=== PATIENT | male | born 1935 | race Caucasian/White ===

== ENCOUNTER 2019-01-09 22:38 | Observation (INO) | payer MEDICARE ==
[2019-01-09 23:14] LABS: #Basophils 0.1 thou/uL (0.0-0.2); #Eosinphils 0.2 thou/uL (0.0-0.7); #Lymphocytes 3.5 thou/uL (1.20-3.40); #Neutrophils 4.7 thou/uL (1.40-6.50); %Basophils 1.3 % (0.0-1.0); %Lymphocytes 37.2 % (21.0-51.0); %Monocytes 10.4 % (0.0-10.0); %Neutrophils 49.1 % (42.0-75.0); Hemoglobin 15.5 g/dL (14.0-18.0); Mean Corpuscular HGB CONC 32.9 g/dL (32.0-36.0); Mean Platelet Volume 6.7 fL (7.4-10.4); Platelet Count 204 thou/uL (130-400); RBC Distribution Width 11.7 % (11.5-14.5); White Blood Cell (WBC) Count 9.5 thou/uL (4.8-10.8)
[2019-01-09 23:41] LABS: ALT (SGPT) 24 U/L (8-55); AST (SGOT) 19 U/L (5-34); Albumin 3.9 g/dL (3.4-4.8); Alkaline Phosphatase 56 U/L (40-150); Anion Gap 12 mmol/L (10-20); BUN (Urea Nitrogen) 12 mg/dL (8.4-25.7); Bilirubin, Total 0.4 mg/dL (0.2-1.2); Calc. Creatinine Clearance 0 mL/min (70-130); Calcium 9.2 mg/dL (7.8-10.44); Carbon Dioxide 26 mmol/L (23-31); Chloride 103 mmol/L (98-107); Estimated GFR-MDRD 59; Glucose 92 mg/dL (83-110); Potassium 4.2 mmol/L (3.5-5.1); Protein, Total 6.9 g/dL (5.8-8.1); Sodium 137 mmol/L (136-145)
--- NOTE | 2019-01-10 00:01 | CT ---
CT OF HEAD NONCONTRAST: 01/09/19 COMPARISON: 08/10/17 INDICATION: Fall. FINDINGS: There is no acute intracranial hemorrhage, mass effect, or midline shift. Ventricular system is leonardo l in size. There is mild chronic ischemic disease. The paranasal sinus mucosa thickening and retentio n cyst formation. IMPRESSION: No acute intracranial hemorrhage or mass effect. POS: THERESAK
[2019-01-10] MEDS ORDERED: Meclizine HCl 25 MG TAB ONE (01:12)
[2019-01-10] MEDS ORDERED: Aspirin 325 MG TAB ONE (01:12)
[2019-01-10 02:32] LABS: Acetaminophen Less than 6.0 mcg/mL (10.0-30.0); Alcohol Less than 10 mg/dL (Less than 10); Salicylate Less than 8.0 mg/dL (15.0-30.0)
[2019-01-10 02:37] LABS: Troponin I Less than 0.010 ng/mL (< 0.028)
[2019-01-10] MEDS ORDERED: Ondansetron ODT 4 MG TAB SL PRN (03:03)
[2019-01-10] MEDS ORDERED: Ondansetron PF 4 MG/2 ML Vial IVP PRN (03:03)
[2019-01-10] MEDS ORDERED: Acetaminophen 325 MG TAB PO PRN (03:03)
[2019-01-10] MEDS ORDERED: Meclizine HCl 25 MG TAB PO PRN (03:04)
[2019-01-10 03:30] VITALS: BMI 31.1
[2019-01-10 07:21] LABS: Troponin I Less than 0.010 ng/mL (< 0.028)
--- NOTE | 2019-01-10 08:48 | CT ---
PRELIMINARY REPORT/[facility]/EMERGENCY AFTER HOURS PROCEDURE: EXAM: CT Angiography Head Without And With Contrast EXAM DATE/TIME: 01/10/2019 2:11 AM CLINICAL HISTORY: 83 years old, male; Signs and symptoms; Weakness; Patient HX: Er15; PT reports having double vision t onight. Reports having episode getting weak when going to the restroom around 2100. Reports falling a nd hitting r. Shoulder. PT reports gargled speech. Reports frontal headache. PT and reports similar episode happened last night and eventually went away TECHNIQUE: Imaging protocol: Axial computed tomographic angiography images of the head without and with intraven ous contrast using CT angiography protocol. Coronal and sagittal reformatted images were created and reviewed. 3D rendering: MIP reconstructed images were created and reviewed. COMPARISON: CT Brain WO Con 01/09/2019 11:54 PM FINDINGS: Right internal carotid artery: Unremarkable. Intracranial segment is patent with no significant steno sis. No aneurysm. Right anterior cerebral artery: Unremarkable. No occlusion or significant stenosis. No aneurysm. Right middle cerebral artery: Unremarkable. No occlusion or significant stenosis. No aneurysm. Right posterior cerebral artery: Unremarkable. No occlusion or significant stenosis. No aneurysm. Right vertebral artery: RIGHT vertebral artery is diminutive but patent. Left internal carotid artery: Unremarkable. Intracranial segment is patent with no significant stenos is. No aneurysm. Left anterior cerebral artery: Unremarkable. No occlusion or significant stenosis. No aneurysm. Left middle cerebral artery: Unremarkable. No occlusion or significant stenosis. No aneurysm. Left posterior cerebral artery: Unremarkable. No occlusion or significant stenosis. No aneurysm. Left vertebral artery: Intracranial LEFT vertebral artery is dominant and patent tiny focal calcifica tion consistent with atherosclerosis. Basilar artery: Unremarkable. No occlusion or significant stenosis. No aneurysm. HEAD: Brain: Unremarkable. No hemorrhage. No significant white matter disease. No edema. Ventricles: Normal. No ventriculomegaly. Bones/joints: Unremarkable. No acute fracture. Sinuses: Visualized sinuses are normal. No fluid levels. Mastoid air cells: Visualized mastoids are normal. No mastoid effusion. Soft tissues: Unremarkable. IMPRESSION: 1. No acute intracranial hemorrhage. 2. No large discrete artery aneurysm, dissection or occlusion. EXAM: CT Angiography Neck With Contrast EXAM DATE/TIME: 01/10/2019 2:11 AM CLINICAL HISTORY: 83 years old, male; Signs and symptoms; Weakness; Patient HX: Er15; PT reports having double vision t onight. Reports having episode getting weak when going to the restroom around 2100. Reports falling and hitting r. Shoulder. PT reports gargled speech. Reports frontal headache. PT and reports similar episode happened last night and eventually went away TECHNIQUE: Imaging protocol: Axial computed tomographic angiography images of the neck with intravenous contrast using CT angiography protocol. Coronal and sagittal reformatted images were created and reviewed. 3D rendering: MIP reconstructed images were created and reviewed. COMPARISON: CT Brain WO Con 01/09/2019 11:54 PM FINDINGS: VASCULATURE: Right common carotid artery: Normal. No significant stenosis. No dissection or occlusion. Right internal carotid artery: There is mild atherosclerotic calcification at the origin of the RIGHT internal carotid artery resulting in mild stenosis. Right external carotid artery: Normal. No occlusion or significant stenosis. Right vertebral artery: RIGHT vertebral artery is somewhat diminutive but patent. Left common carotid artery: Normal. No significant stenosis. No dissection or occlusion. Left internal carotid artery: There is mild atherosclerotic calcification at the origin of the LEFT internal carotid artery resulting in mild stenosis. Left external carotid artery: Normal. No occlusion or significant stenosis. Left vertebral artery: LEFT vertebral artery is dominant and patent. NECK: Bones/joints: The cervical spine demonstrates mild degenerative changes at multiple levels. Soft tissues: Normal. No significant soft tissue swelling. Lungs: There is interstitial thickening suggestive of mild pulmonary edema pattern IMPRESSION: Mild atherosclerotic calcification and stenosis at the origins of the RIGHT and LEFT internal carotid arteries. COMMENT: Reference per NASCET criteria for degree of stenosis: Mild: less than 50% stenosis. Moderate: 50-69% stenosis. Severe: 70-94% stenosis. Near occlusion: 95-99% stenosis. Thank you for allowing us to participate in the care of your patient. Dictated and Authenticated by: Phong Castellon MD 01/10/2019 3:01 AM Central Time ([place] & [place]) FINAL REPORT CT ANGIOGRAM HEAD AND NECK: Date: 01/10/19 HISTORY: Weakness. Evaluate for CVA. COMPARISON: None. TECHNIQUE: CT angiogram of the head and neck performed in the axial plane. Three-dimensional reformatted images are submitted for interpretation. FINDINGS: This report is in agreement with the preliminary report by [facility]. There is no significant stenosis bas ed upon NASCET criteria of the cervical carotid or vertebral arteries. There is appropriate enhanceme nt of the [place]. IMPRESSION: No evidence of significant stenosis based upon NASCET criteria. There is no evidence of vascular occl usion at the level of the [place]. POS: OFF
[2019-01-10] MEDS ORDERED: Aspirin 325 MG TAB PO SCH (09:00)
--- NOTE | 2019-01-10 10:20 | HP ---
HISTORY OF PRESENT ILLNESS: This is an 83-year-old white male with a history of bipolar disorder followed by Dr. Call and depression. The patient is on multiple medications including triazolam and Lamictal. The patient has been doing relatively well. Sunday night, he went to a very disturbing movie. It was quite graphic and the patient has had difficulty sleeping for the past 2 nights. He was taking triazolam. On the following morning, Sunday morning and morning, he fell getting out of bed. However, he has been ambulating without difficulty. He has no complaints of headache. No nausea. No vomiting. No fever. He simply complains of tingling of his head. No complaints of any weakness. No complaints of any ataxia. He states that the mood was very disturbing as well as having his others normal stressors of . PAST MEDICAL HISTORY: Bipolar disorder, depression, history of prostate cancer, hypertension, hyperlipidemia, and arthritis. PAST SURGICAL HISTORY: Include colectomy, tonsillectomy, and cardiac catheterization. FAMILY HISTORY: Parents . No family history of heart disease, diabetes, hypertension, or cancers. SOCIAL HISTORY: He is . He has 4 kids. He tries to stay active. MEDICATIONS: 1. Cimzia subcu q.4 weeks. 2. Lamictal 20 mg three tabs daily. 3. Triazolam 0.25 at bedtime. 4. Mirtazapine 30 at bedtime. 5. Lotrisone p.r.n. 6. Mercaptopurine 50 two tabs daily. 7. Flomax 0.4 daily. 8. Metoprolol 100 b.i.d. 9. Losartan 100 mg p.o. q.a.m. 10. Crestor 5 mg daily. 11. Fish oil daily. REVIEW OF SYSTEMS: As above. PHYSICAL EXAMINATION: VITAL SIGNS: Temperature 97.8, pulse 70, respirations 16, pulse ox 95, and blood pressure 137/77. GENERAL: The patient in no acute distress. HEENT: Clear. NECK: Supple. HEART: Regular rate and rhythm. LUNGS: Clear. ABDOMEN: Soft. EXTREMITIES: With no edema. NEURO: Cranial nerves II through XII intact. Normal ambulation. Normal motor sensory bilaterally. LABORATORY DATA: White count 9.5, H and H 15 and 47. Electrolytes normal. Creatinine 1.18. Troponin less than 0.010 x3. Drug screen negative. ASSESSMENT: 1. Transient ischemic attack pain, rule out cerebrovascular accident. Unsure if the patient even had a transient ischemic attack. The patient on mirtazapine, Lamictal, and triazolam under stress especially after seeing a disturbing movie. May be aggravating factors to the fall. At this time, he is relatively asymptomatic. 2. History of prostate cancer. 3. Bipolar disorder. 4. Depression. 5. Hypertension. 6. Hyperlipidemia. PLAN: 1. MRI, rule out brain pathology. 2. Continue regular activity. 3. Begin aspirin 325 daily. 4. Possible discharge this afternoon. Job ID: [id number]
--- NOTE | 2019-01-10 11:45 | MRI ---
FBrain MRI with and without contrast: 01/10/2019 COMPARISON: None HISTORY: Dizziness, fall TECHNIQUE: Multiplanar multisequence MR imaging of the brain obtained at within without contrast FINDINGS: The diffusion weighted imaging demonstrates no evidence for acute infarction. The axial gradient echo imaging demonstrates no evidence for intracranial hemorrhage. Arterial flow v oids at the axial level of the skull base appear grossly unremarkable on the T2-weighted imaging. The right vertebral artery is hypoplastic. The regional bone marrow signal intensity appears within normal limits. There are multiple small scattered foci of increased T2 and FLAIR signal within the periventricular a nd deep white matter, evidence of small vessel disease. Postcontrast imaging demonstrates no abnormal enhancement within the brain parenchyma. IMPRESSION: No acute findings. Evidence of small vessel disease.
[2019-01-10 12:07] VITALS: BP 150/71; TEMP 97.2
[2019-01-10] MEDS ORDERED: ISOVUE-370 76%-LOCM 1 ML ONE (15:04)
--- NOTE | 2019-01-10 16:04 | ULT ---
FMeasuring Echogenic focus Exam: Bilateral renal ultrasound HISTORY: Microhematuria COMPARISON: None FINDINGS: Right kidney: Renal cortical thinning. No hydronephrosis. Echogenic focus measuring 0.8 x 1.3 cm has associated decreased renal cortex, suggesting area of scar with associated fat. Hypoechoic focus andrei uring 1.3 cm is too small to characterize. Right kidney measurements: 8.9 x 5.7 x 5.5 cm Left kidney: Renal cortical thinning. No hydronephrosis. Left kidney measurements 6.0 x 6.3 x 11.8 cm. Urinary bladder: Normal mucosa. IMPRESSION: 1. No hydronephrosis 2. Bilateral renal cortical thinning. 3. Hypoechoic focus in the right kidney, too small to further characterize.
== END 2019-01-10 15:44 | disposition home or self-care (01) ==
LOC: ERS 22:38 → INTOOBSV 01-10 02:53 → 2SE 01-10 02:53
PROVIDERS: ADMIT Family Medicine; ATTEND Family Medicine
DX: R20.2 Paresthesia of skin (principal); I10 Essential (primary) hypertension; I65.23 Occlusion and stenosis of bilateral carotid arteries; F31.9 Bipolar disorder, unspecified; E78.5 Hyperlipidemia, unspecified; M19.90 Unspecified osteoarthritis, unspecified site; Z85.46 Personal history of malignant neoplasm of prostate; Z90.49 Acquired absence of other specified parts of digestive tract; Z90.89 Acquired absence of other organs; Z98.890 Other specified postprocedural states; Z79.899 Other long term (current) drug therapy; W06.XXXA Fall from bed, initial encounter
CPT/HCPCS: 36415; 70450; 70496; 70498; 70553; 76770; 80053; 80307; 84484; 85025; 93005; J2405; Q9966

== ENCOUNTER 2019-11-20 01:52 | Observation (INO) | payer MEDICARE ==
[2019-11-20] MEDS ORDERED: Meclizine HCl 25 MG TAB ONE ×2 (02:19→02:20)
[2019-11-20 02:46] LABS: #Eosinphils 0.2 thou/uL (0.0-0.7); #Lymphocytes 2.7 thou/uL (1.20-3.40); #Monocytes 0.8 thou/uL (0.11-0.59); #Neutrophils 5.3 thou/uL (1.40-6.50); %Basophils 0.4 % (0.0-1.0); %Eosinophils 2.3 % (0.0-10.0); %Lymphocytes 29.5 % (21.0-51.0); %Monocytes 9.1 % (0.0-10.0); %Neutrophils 58.7 % (42.0-75.0); Hemoglobin 14.5 g/dL (14.0-18.0); Mean Corpuscular HGB CONC 33.7 g/dL (32.0-36.0); Mean Corpuscular Hemoglobin 34.1 pg (27.0-31.0); Mean Platelet Volume 6.9 fL (7.4-10.4); Platelet Count 184 thou/uL (130-400); RBC Distribution Width 11.4 % (11.5-14.5); Red Blood Cell (RBC) Count 4.26 mill/uL (4.70-6.10)
[2019-11-20 02:50] LABS: Bilirubin Negative (Negative); Blood, Urine Negative (Negative); Clarity Clear (Clear); Glucose, Urine (Dipstick) Normal (Negative); Leukocyte Negative Leu/uL (Negative); Nitrite Negative (Negative); Protein, Urine (Dipstick) Negative (Neg-Trace); Urobilinogen Normal mg/dL (Less than 2)
[2019-11-20 03:17] LABS: ALT (SGPT) 13 U/L (8-55); AST (SGOT) 18 U/L (5-34); Albumin 3.6 g/dL (3.4-4.8); Alkaline Phosphatase 53 U/L (40-110); Anion Gap 13 mmol/L (10-20); BUN (Urea Nitrogen) 12 mg/dL (8.4-25.7); Bilirubin, Total 0.4 mg/dL (0.2-1.2); Calc. Creatinine Clearance 0 mL/min (70-130); Calcium 8.4 mg/dL (7.8-10.44); Carbon Dioxide 24 mmol/L (23-31); Chloride 107 mmol/L (98-107); Estimated GFR-MDRD 63; Globulin 2.8 g/dL (2.4-3.5); Glucose 110 mg/dL (83-110); Potassium 4.7 mmol/L (3.5-5.1); Protein, Total 6.4 g/dL (5.8-8.1); Sodium 139 mmol/L (136-145)
[2019-11-20] MEDS ORDERED: Aspirin 325 MG TAB ONE (03:46)
[2019-11-20 06:01] VITALS: BMI 31.2
--- NOTE | 2019-11-20 06:23 | CT ---
PRELIMINARY REPORT/[facility]/EMERGENCY AFTER HOURS PROCEDURE: CT brain without contrast: Comparison: None Findings: No intracranial hemorrhage. No hydrocephalus. No mass lesion, midline shift or inferior herniation. Nonspecific bilateral patchy hypodensity in the white matter is most likely chronic small vessel isch emic change in a patient this age. No evidence of acute infarct. Cerebral and cerebellar atrophy. No fracture. Impression: No acute intracranial abnormality. No fracture. ELECTRONICALLY SIGNED BY: Quinton Patton MD Nov 20, 2019 2:56:05 AM RESIDENTIAL TREATMENT SPECIALIST This report is intended for review by the ordering physician only, in accordance of law. If you recei ve this report in error, please call [facility] at [phone]. FINAL REPORT EMERGENCY AFTER HOURS CT BRAIN WITHOUT CONTRAST: FINDINGS/IMPRESSION: I agree with the findings and impression given in the preliminary report per [facility] physici an. No evidence of acute intracranial abnormality.
[2019-11-20] MEDS ORDERED: TRIAZOLAM 0.25 MG PO PRN ×2 (07:49→08:04)
[2019-11-20] MEDS ORDERED: Meclizine HCl 12.5 MG TAB PO PRN (07:51)
--- NOTE | 2019-11-20 08:11 | RAD ---
SINGLE VIEW OF THE CHEST: COMPARISON: 01/29/2015. HISTORY: Weakness and dizziness. FINDINGS: A single view of the chest shows a normal-size cardiomediastinal silhouette. There is no evidence of consolidation, mass, or pleural effusion. The previously seen opacity in the right lower lobe has r esolved. Degenerative changes are seen in the spine. IMPRESSION: No evidence of acute cardiopulmonary disease. POS: TPC
[2019-11-20] MEDS ORDERED: Diazepam 10 MG/2 ML SYRINGE IVP SCH (08:30)
[2019-11-20] MEDS ORDERED: Tamsulosin HCl 0.4 MG CAP PO SCH (09:00)
[2019-11-20] MEDS ORDERED: Rosuvastatin 5 MG TAB PO SCH ×2 (09:00)
[2019-11-20] MEDS ORDERED: Aspirin 81 mg Enteric Coated Tablet PO SCH (09:00)
--- NOTE | 2019-11-20 10:27 | MRI ---
Exam: Brain MRI without contrast HISTORY: Diplopia. Evaluate for stroke. COMPARISON: None FINDINGS: Calvarial marrow signal intensity: Appropriate T1 signal Gradient echo sequence: No hemorrhage Brain parenchyma: No mass, mass effect or midline shift. Brain volume, age-appropriate. Cortical huizar-white matter differentiation: Preserved Restricted diffusion: Central arterial flow voids are maintained. Absent restricted diffusion White matter signal intensities: T2, FLAIR white matter hyperintensities due to chronic small vessel ischemic changes Sinuses: Adequate aeration of the paranasal sinuses and mastoid air cells. Orbits: Based on images provided, bilateral ocular lens implants are appropriately located. No obviou s abnormal signal intensity in the retrobulbar region. Based on images provided, optic chiasm and prechiasmatic optic nerves are unremarkable. IMPRESSION: 1. Absent restricted diffusion. No acute infarct. 2. Based on the sagittal images, optic chiasm prechiasmatic optic nerves are unremarkable. 3. Based on images provided, grossly unremarkable orbits.
[2019-11-20 12:31] VITALS: TEMP 97.6
[2019-11-20 16:30] VITALS: BP 113/57
[2019-11-20] MEDS ORDERED: lamoTRIgine 100 MG TAB PO SCH (21:00)
[2019-11-20] MEDS ORDERED: LAMOTRIGINE PO SCH (21:00)
--- NOTE | 2019-11-21 03:25 | SS ---
DATE OF ADMISSION: 11/20/2019 DATE OF DISCHARGE: 11/20/2019 PRIMARY CARE PHYSICIAN: Phong Jewell MD CHIEF COMPLAINT: Dizziness and later double vision. HISTORY OF PRESENT ILLNESS: This is an 84-year-old white male with a history of recurrent dizzy spells frequently over the last 2 years, perhaps longer. These are usually self-limited. He has been evaluated before including a workup for possible TIA. It was negative last year and thought to be psychogenic due to stress and bipolar disorder. He reports that he was getting up to urinate early in the morning and he was staggering and reaching out for the limon and eventually sat back down in the chair, because he felt like he was just too weak to do it, felt very dizzy and lightheaded. He knocked his head against the wall little bit because he was off balance. He reports that he had a spongy feeling and then he started feeling electric shock sensations in his forehead. They would last for couple of seconds each. He was evaluated in the emergency room. In the ER, he had a negative CT of the head. He was given aspirin, 500 mL of normal saline, and meclizine. After that, his dizziness and unsteadiness resolved, but then he had reported double vision. As a result, he was put in observation in the hospital to rule out stroke or TIAs. The patient had an MRI done prior to my evaluation. By the time I saw him, he was a little bit groggy from the Valium that he had received for the MRI due to feelings of claustrophobia but otherwise, his double vision had resolved. REVIEW OF SYSTEMS: CONSTITUTIONAL: No fevers. No chills. EYES: See HPI. ENT: No congestion or drainage or sore throat. He does report that his left ear pops a lot. CARDIOVASCULAR: No chest pain. No palpitations or racing heart. PULMONARY: No coughing, wheezing or shortness of breath. GASTROINTESTINAL: No abdominal pain. No nausea or vomiting. No diarrhea or constipation. GENITOURINARY: No dysuria or hematuria. MUSCULOSKELETAL: No muscle aches or joint pain. SKIN: No rashes or lesions noted. NEUROLOGIC: See HPI. No focal numbness, tingling, or weakness. Just a feeling of being overall unsteadiness earlier. PSYCHIATRIC: The patient does report feeling quite upset at his and depressed after they got into an argument on Sunday, but he felt like he was getting a little bit better yesterday and then this happened. PAST MEDICAL HISTORY: 1. Hypertension. 2. Hyperlipidemia. 3. Arthritis. 4. History of prostate cancer. PAST PSYCHIATRIC HISTORY: 1. Bipolar disorder. 2. Depression. SOCIAL HISTORY: No tobacco, alcohol, or illicit drug use. He is . His is present in the room. ALLERGIES: NO KNOWN DRUG ALLERGIES. CURRENT MEDICATIONS: 1. Metoprolol succinate 100 mg two times a day. 2. Lamotrigine 200 mg three tablets at bedtime. 3. Tamsulosin 0.4 mg daily. 4. Mercaptopurine 50 mg daily. 5. Losartan 100 mg daily. 6. Triazolam 0.25 mg 1 to 1.5 tablets as needed at night. 7. Rosuvastatin 5 mg daily. FAMILY HISTORY: Parents are . No family history of heart disease, diabetes, hypertension, or cancers. PHYSICAL EXAMINATION: VITAL SIGNS: Blood pressure 113/57, pulse 75, respirations 13, O2 saturation 98% on room air, and temperature 97.6. GENERAL: This is a well-developed obese white male, in no acute distress. HEENT: Pupils are equal, round, and reactive to light. Oropharynx clear without lesions, erythema, or exudate. NECK: Supple. No lymphadenopathy. No thyroid nodules or enlargement. No JVD. HEART: Regular rate and rhythm. No murmurs, rubs, or gallops. LUNGS: Clear to auscultation bilaterally. No wheezes, crackles, or rhonchi. ABDOMEN: Soft, nontender to palpation. Normoactive bowel sounds. No hepatosplenomegaly or other masses. EXTREMITIES: No clubbing, cyanosis, or edema. SKIN: No rashes or lesions noted. NEUROLOGIC: Cranial nerves 2 through 12 intact and equal bilaterally. Strength 5/5 in all 4 extremities. Deep tendon reflexes are 2+ in all extremities. Sensation intact in all extremities. PSYCHIATRIC: Alert and oriented x3. Slightly odd affect. LABORATORY DATA: CBC grossly within normal limits. Complete metabolic panel within normal limits. Brain natriuretic peptide is 104. Troponin is negative. Urinalysis was negative. CT scan done in the emergency room showed no acute intracranial process. MRI done in the emergency room shows no acute infarct. No abnormalities in the optic chiasm, optic nerves or orbits, or any other abnormalities noted to explain double vision he had earlier. ASSESSMENT: Recurrent dizziness followed by some double vision. The patient now has a normal neurologic exam. There is no evidence of stroke. He denies any headaches as far as migraines, cause of the symptoms, but he does have some recurrent dizziness and vertigo spells over the last couple years. This could be an atypical migraine without headache versus peripheral vertigo disease versus psychogenic from stress and family conflict. At this point, there is no evidence for stroke or acute process and so, he is cleared to go home. I am going to recommend that he follow up with Ear, Nose, Throat doctor and with neurologist to continue working up at these recurrent dizzy spells. I will release him later in the day today after the Valium has wore off completely and he is safe to ambulate at home. Job ID: [id number]
--- NOTE | 2019-11-22 12:12 | EKG ---
Test Reason : Blood Pressure : / mmHG Vent. Rate : 054 BPM Atrial Rate : 054 BPM P-R Int : 348 ms QRS Dur : 088 ms QT Int : 430 ms P-R-T Axes : 065 -10 029 degrees QTc Int : 407 ms Sinus bradycardia with 1st degree A-V block Otherwise normal ECG Confirmed by LIDA GALVAN ([id number]), book editor JAKOB SMITH ([id number]) on 11/22/2019 12:12:12 PM Referred By: Confirmed By:LIDA GALVAN
== END 2019-11-20 18:00 | disposition home or self-care (01) ==
LOC: ERS 01:52 → 2SE 04:10
PROVIDERS: ADMIT Internal Medicine; ATTEND Emergency Medicine
DX: R42 Dizziness and giddiness (principal); H53.2 Diplopia; I10 Essential (primary) hypertension; E78.5 Hyperlipidemia, unspecified; F31.9 Bipolar disorder, unspecified; M19.90 Unspecified osteoarthritis, unspecified site; Z79.899 Other long term (current) drug therapy; Z85.46 Personal history of malignant neoplasm of prostate; E78.00 Pure hypercholesterolemia, unspecified
CPT/HCPCS: 70450; 70551; 71045; 80053; 81003; 83880; 84484; 85025; 93005; 96361; 96374; 99285; G0378; 96360; J3360; J8597

== ENCOUNTER 2019-11-24 14:40 | Outpatient (CLI) | payer MEDICARE ==
--- NOTE | 2019-11-24 15:57 | MRI ---
MRI lumbar spine noncontrast HISTORY: Low back pain with right leg radiculopathy worsening for 4 months. COMPARISON: 06/08/2016. FINDINGS: Vertebral body heights are maintained. There is disc space narrowing at each level with gamaliel iccation of the intervertebral discs. Discogenic endplate changes throughout the bone marrow have progressed since the previous exam. T12-L1: Prominent osteophytosis of the facets. Posterior ligamentous thickening greater on the left. Central canal and right neural foramen are patent. There is mild to moderate stenosis of the left neural foramen. L1-2: Disc space narrowing. Minimal disc bulge. Central canal is patent. Degenerative changes of the facets. Moderate to severe stenosis of the left neural foramen. L2-3: Prominent posterior disc bulge and circumferential degenerative changes. Moderate to severe dawn nosis of the central canal. Severe bilateral foraminal stenoses, left greater than right. L3-4: Posterior disc bulge and circumferential degenerative changes. Moderate to severe stenosis of t he central canal. Severe right and moderate to severe left foraminal stenoses. L4-5: Diffuse posterior disc bulge and circumferential degenerative changes. Severe stenosis of the c entral canal and each neural foramen. L5-S1: Minimal degenerative retrolisthesis. Mild posterior disc bulge. Thecal sac is patent. Degenera tive changes of the facets. Moderate to severe stenosis of each neural foramen. IMPRESSION: Prominent multilevel degenerative changes throughout the lumbar spine, as detailed above, have progressed since the prior study from 2015. There is severe central canal stenosis at the L4-5 level and multilevel severe bilateral foraminal stenoses, as detailed above.
== END 2019-11-24 14:41 | disposition home or self-care (01) ==
LOC: BICMRI 14:40
PROVIDERS: ATTEND Family Medicine
DX: M47.26 Other spondylosis with radiculopathy, lumbar region (principal); M48.061 Spinal stenosis, lumbar region without neurogenic claudication; M47.817 Spondylosis without myelopathy or radiculopathy, lumbosacral region; M48.07 Spinal stenosis, lumbosacral region
CPT/HCPCS: 72148

== ENCOUNTER 2020-12-10 11:00 | Outpatient (CLI) | payer MEDICARE | END 2020-12-10 11:01 | disposition home or self-care (01) | LOC: BICRAD 11:00 | PROVIDERS: ATTEND Nurse Practitioner Family | DX: M54.6 Pain in thoracic spine (principal); M47.814 Spondylosis without myelopathy or radiculopathy, thoracic region | CPT/HCPCS: 72072 ==

== ENCOUNTER 2021-08-07 13:16 | Emergency (ER) | payer MEDICARE | END 2021-08-07 14:04 | disposition home or self-care (01) | LOC: ERS 13:16 | DX: T18.9XXA Foreign body of alimentary tract, part unspecified, initial encounter (principal); E78.5 Hyperlipidemia, unspecified; E78.00 Pure hypercholesterolemia, unspecified; I10 Essential (primary) hypertension; K58.9 Irritable bowel syndrome, unspecified | CPT/HCPCS: 99283 ==

== ENCOUNTER 2022-11-03 09:16 | Inpatient (IN) | payer MEDICARE ==
[2022-11-03] MEDS ORDERED: Meclizine HCl 25 MG TAB ONE (10:10)
[2022-11-03 10:44] LABS: #Basophils 0.1 thou/uL (0.0-0.2); #Eosinphils 0.2 thou/uL (0.0-0.7); #Lymphocytes 2.6 thou/uL (1.20-3.40); #Monocytes 0.9 thou/uL (0.11-0.59); #Neutrophils 4.6 thou/uL (1.40-6.50); %Basophils 0.7 % (0.0-1.0); %Eosinophils 2.6 % (0.0-10.0); %Lymphocytes 31.2 % (21.0-51.0); %Monocytes 11.2 % (0.0-10.0); %Neutrophils 54.3 % (42.0-75.0); Hemoglobin 12.5 g/dL (14.0-18.0); Mean Corpuscular Hemoglobin 33.2 pg (27.0-31.0); Mean Platelet Volume 7.8 fL (7.4-10.4); Platelet Count 170 10x3/uL (130-400); RBC Distribution Width 12.2 % (11.5-14.5); Red Blood Cell (RBC) Count 3.77 mill/uL (4.70-6.10); White Blood Cell (WBC) Count 8.4 10x3/uL (4.8-10.8)
[2022-11-03 11:04] LABS: ALT (SGPT) 17 U/L (8-55); AST (SGOT) 20 U/L (5-34); Albumin 3.2 g/dL (3.4-4.8); Alkaline Phosphatase 56 U/L (40-110); Anion Gap 16 mmol/L (10-20); BUN (Urea Nitrogen) 14 mg/dL (8.4-25.7); Bilirubin, Total 0.4 mg/dL (0.2-1.2); Calc. Creatinine Clearance 0 mL/min (70-130); Calcium 8.5 mg/dL (7.8-10.44); Carbon Dioxide 18 mmol/L (23-31); Chloride 106 mmol/L (98-107); Estimated GFR 62; Globulin 3.4 g/dL (2.4-3.5); Glucose 121 mg/dL (83-110); Potassium 4.7 mmol/L (3.5-5.1); Protein, Total 6.6 g/dL (5.8-8.1); Sodium 135 mmol/L (136-145)
[2022-11-03 12:09] LABS: Bilirubin Negative (Negative); Blood, Urine Negative (Negative); Clarity Clear (Clear); Glucose, Urine (Dipstick) Normal (Negative); Ketone, Urine Negative (Negative); Leukocyte Negative Leu/uL (Negative); Nitrite Negative (Negative); Protein, Urine (Dipstick) Negative (Neg-Trace); Specific Gravity, Urine 1.015 (1.002-1.036); Urobilinogen Normal mg/dL (Less than 2); pH, Urine 5.5 (5.0-9.0)
[2022-11-03] MEDS ORDERED: Senokot S 8.6-50 MG TAB PO PRN (13:36)
[2022-11-03] MEDS ORDERED: Meclizine HCl 12.5 MG TAB PO PRN (13:36)
[2022-11-03] MEDS ORDERED: Guaifenesin DM 100-10/5 ML UDCUP PO PRN (13:36)
[2022-11-03] MEDS ORDERED: Bisacodyl 10 MG SUPP PR PRN (13:36)
[2022-11-03] MEDS ORDERED: Aspirin 81 mg Enteric Coated Tablet PO SCH (14:00)
[2022-11-03] MEDS ORDERED: Aspirin Chewable 81 MG TAB ONE (15:26)
[2022-11-03] MEDS: Sodium Chloride 0.9% 1,000 ML IV SCH (15:34)
[2022-11-03 16:17] VITALS: BMI 32.3
[2022-11-03] MEDS: lamoTRIgine 100 MG TAB PO SCH (20:39)
[2022-11-03] MEDS: Rosuvastatin 20 MG TAB PO SCH (20:39)
[2022-11-03] MEDS: Metoprolol Tartrate 50 MG TAB PO SCH (20:40)
[2022-11-03] MEDS: Melatonin 3 MG TAB PO PRN (21:56)
[2022-11-04] MEDS: Ondansetron PF 4 MG/2 ML Vial IVP PRN (01:06)
[2022-11-04] MEDS ORDERED: Promethazine HCl 12.5 MG in Sodium Chloride 0.9% 50 ML IVPB SCH (02:45)
[2022-11-04] MEDS: Sodium Chloride 0.9% 1,000 ML IV SCH ×3 (02:55→20:39)
[2022-11-04] MEDS: Acetaminophen 325 MG TAB PO PRN ×2 (04:43→22:47)
[2022-11-04 05:39] LABS: #Lymphocytes 1.8 thou/uL (1.20-3.40); #Monocytes 0.7 thou/uL (0.11-0.59); #Neutrophils 6.1 thou/uL (1.40-6.50); %Basophils 0.1 % (0.0-1.0); %Eosinophils 0.4 % (0.0-10.0); %Lymphocytes 20.5 % (21.0-51.0); %Monocytes 7.6 % (0.0-10.0); %Neutrophils 71.5 % (42.0-75.0); Hemoglobin 11.6 g/dL (14.0-18.0); Mean Corpuscular HGB CONC 33.1 g/dL (32.0-36.0); Mean Corpuscular Hemoglobin 33.4 pg (27.0-31.0); Mean Platelet Volume 6.6 fL (7.4-10.4); Platelet Count 184 10x3/uL (130-400); RBC Distribution Width 12.2 % (11.5-14.5); Red Blood Cell (RBC) Count 3.48 mill/uL (4.70-6.10); White Blood Cell (WBC) Count 8.6 10x3/uL (4.8-10.8)
[2022-11-04 06:03] LABS: ALT (SGPT) 15 U/L (8-55); AST (SGOT) 14 U/L (5-34); Albumin 3.2 g/dL (3.4-4.8); Alkaline Phosphatase 58 U/L (40-110); Anion Gap 10 mmol/L (10-20); BUN (Urea Nitrogen) 11 mg/dL (8.4-25.7); Bilirubin, Total 0.4 mg/dL (0.2-1.2); Calc. Creatinine Clearance 80 mL/min (70-130); Calcium 8.4 mg/dL (7.8-10.44); Carbon Dioxide 21 mmol/L (23-31); Cardiac Risk 2.8 (Less than 4.5); Chloride 108 mmol/L (98-107); Cholesterol 115 mg/dl (< 200 Desired); Estimated GFR 73; Globulin 2.6 g/dL (2.4-3.5); Glucose 133 mg/dL (83-110); HDL Cholesterol 41 mg/dL (>60 Neg Risk); LDL Cholesterol, Calculated 59 mg/dL; Potassium 4.4 mmol/L (3.5-5.1); Protein, Total 5.8 g/dL (5.8-8.1); Sodium 135 mmol/L (136-145); Triglycerides 77 mg/dL (Less than 150)
[2022-11-04] MEDS ORDERED: Lorazepam 2 MG/ML VIAL SLOW IVP PRN (08:40)
[2022-11-04] MEDS: Tamsulosin HCl 0.4 MG CAP PO SCH (09:02)
[2022-11-04] MEDS: Losartan 25 MG TAB PO SCH (09:03)
[2022-11-04] MEDS: Aspirin 81 mg Enteric Coated Tablet PO SCH (09:03)
[2022-11-04] MEDS: Metoprolol Tartrate 50 MG TAB PO SCH ×2 (10:29→20:39)
[2022-11-04] MEDS ORDERED: Metoprolol Tartrate 25 MG TAB PO SCH (12:20)
[2022-11-04] MEDS: Rosuvastatin 20 MG TAB PO SCH (20:38)
[2022-11-04] MEDS: lamoTRIgine 100 MG TAB PO SCH (20:38)
[2022-11-04] MEDS: Melatonin 3 MG TAB PO PRN (22:47)
[2022-11-05] MEDS ORDERED: OLANZapine 10 MG VIAL IM SCH (00:30)
[2022-11-05] MEDS: Sodium Chloride 0.9% 1,000 ML IV SCH (06:56)
[2022-11-05] MEDS: Aspirin 81 mg Enteric Coated Tablet PO SCH (09:00)
[2022-11-05] MEDS: Tamsulosin HCl 0.4 MG CAP PO SCH (09:00)
[2022-11-05] MEDS: Losartan 25 MG TAB PO SCH (09:00)
[2022-11-05] MEDS: Metoprolol Tartrate 50 MG TAB PO SCH ×2 (09:00→19:47)
[2022-11-05] MEDS ORDERED: Sodium Chloride 0.9% 1,000 ML IV SCH (11:15)
[2022-11-05] MEDS: Rosuvastatin 20 MG TAB PO SCH (19:48)
[2022-11-05] MEDS: lamoTRIgine 100 MG TAB PO SCH (19:48)
[2022-11-05] MEDS: Melatonin 3 MG TAB PO PRN (19:55)
[2022-11-06] MEDS ORDERED: Haloperidol Lactate 5 MG/ML VIAL SLOW IVP SCH (02:30)
[2022-11-06] MEDS: Metoprolol Tartrate 50 MG TAB PO SCH ×2 (08:53→22:09)
[2022-11-06] MEDS: Losartan 25 MG TAB PO SCH (08:54)
[2022-11-06] MEDS: Aspirin 81 mg Enteric Coated Tablet PO SCH (08:54)
[2022-11-06] MEDS: Tamsulosin HCl 0.4 MG CAP PO SCH (08:54)
[2022-11-06] MEDS: lamoTRIgine 100 MG TAB PO SCH (22:08)
[2022-11-06] MEDS: Rosuvastatin 20 MG TAB PO SCH (22:09)
[2022-11-07 06:23] LABS: #Eosinphils 0.3 thou/uL (0.0-0.7); #Lymphocytes 2.4 thou/uL (1.20-3.40); #Neutrophils 3.9 thou/uL (1.40-6.50); %Basophils 0.5 % (0.0-1.0); %Eosinophils 3.7 % (0.0-10.0); %Lymphocytes 31.6 % (21.0-51.0); %Monocytes 12.8 % (0.0-10.0); %Neutrophils 51.4 % (42.0-75.0); Hemoglobin 12.8 g/dL (14.0-18.0); Mean Corpuscular HGB CONC 32.6 g/dL (32.0-36.0); Mean Corpuscular Hemoglobin 32.6 pg (27.0-31.0); Mean Platelet Volume 6.5 fL (7.4-10.4); Platelet Count 203 10x3/uL (130-400); RBC Distribution Width 12.5 % (11.5-14.5); Red Blood Cell (RBC) Count 3.93 mill/uL (4.70-6.10); White Blood Cell (WBC) Count 7.6 10x3/uL (4.8-10.8)
[2022-11-07 06:41] LABS: Anion Gap 14 mmol/L (10-20); BUN (Urea Nitrogen) 8 mg/dL (8.4-25.7); Calc. Creatinine Clearance 72 mL/min (70-130); Calcium 8.6 mg/dL (7.8-10.44); Carbon Dioxide 23 mmol/L (23-31); Chloride 107 mmol/L (98-107); Estimated GFR 65; Glucose 90 mg/dL (83-110); Potassium 3.6 mmol/L (3.5-5.1); Sodium 140 mmol/L (136-145)
[2022-11-07] MEDS: Aspirin 81 mg Enteric Coated Tablet PO SCH ×2 (12:41→13:31)
[2022-11-07] MEDS: Metoprolol Tartrate 50 MG TAB PO SCH (12:42)
[2022-11-07] MEDS: Losartan 25 MG TAB PO SCH (12:42)
[2022-11-07] MEDS: Tamsulosin HCl 0.4 MG CAP PO SCH ×2 (12:42→13:31)
[2022-11-07] MEDS: Rosuvastatin 20 MG TAB PO SCH (20:44)
[2022-11-07] MEDS: lamoTRIgine 100 MG TAB PO SCH (20:44)
[2022-11-07] MEDS: Metoprolol Tartrate 25 MG TAB PO SCH (20:45)
[2022-11-08 08:32] LABS: #Eosinphils 0.2 thou/uL (0.0-0.7); #Lymphocytes 2.2 thou/uL (1.20-3.40); #Neutrophils 4.3 thou/uL (1.40-6.50); %Basophils 0.4 % (0.0-1.0); %Eosinophils 3.1 % (0.0-10.0); %Lymphocytes 28.4 % (21.0-51.0); %Neutrophils 55.1 % (42.0-75.0); Hemoglobin 12.7 g/dL (14.0-18.0); Mean Corpuscular HGB CONC 32.7 g/dL (32.0-36.0); Mean Platelet Volume 6.5 fL (7.4-10.4); Platelet Count 217 10x3/uL (130-400); RBC Distribution Width 12.6 % (11.5-14.5); Red Blood Cell (RBC) Count 3.86 mill/uL (4.70-6.10); White Blood Cell (WBC) Count 7.8 10x3/uL (4.8-10.8)
[2022-11-08 08:42] LABS: Anion Gap 17 mmol/L (10-20); BUN (Urea Nitrogen) 12 mg/dL (8.4-25.7); Calc. Creatinine Clearance 69 mL/min (70-130); Calcium 8.3 mg/dL (7.8-10.44); Carbon Dioxide 22 mmol/L (23-31); Chloride 106 mmol/L (98-107); Estimated GFR 61; Glucose 104 mg/dL (83-110); Potassium 3.6 mmol/L (3.5-5.1); Sodium 141 mmol/L (136-145)
[2022-11-08] MEDS: Losartan 25 MG TAB PO SCH (09:22)
[2022-11-08] MEDS: Aspirin 81 mg Enteric Coated Tablet PO SCH (09:26)
[2022-11-08] MEDS: Tamsulosin HCl 0.4 MG CAP PO SCH (09:26)
[2022-11-08] MEDS: Metoprolol Tartrate 25 MG TAB PO SCH ×2 (09:26→20:54)
[2022-11-08] MEDS: Rosuvastatin 20 MG TAB PO SCH (20:54)
[2022-11-08] MEDS: lamoTRIgine 100 MG TAB PO SCH (20:54)
[2022-11-08] MEDS: Melatonin 3 MG TAB PO PRN (20:54)
[2022-11-09 07:10] LABS: #Eosinphils 0.3 thou/uL (0.0-0.7); #Lymphocytes 1.1 thou/uL (1.20-3.40); #Monocytes 1.2 thou/uL (0.11-0.59); #Neutrophils 8.6 thou/uL (1.40-6.50); %Basophils 0.2 % (0.0-1.0); %Eosinophils 2.4 % (0.0-10.0); %Lymphocytes 9.5 % (21.0-51.0); %Monocytes 10.7 % (0.0-10.0); %Neutrophils 77.3 % (42.0-75.0); Hemoglobin 14.5 g/dL (14.0-18.0); Mean Corpuscular Hemoglobin 33.3 pg (27.0-31.0); Mean Platelet Volume 6.6 fL (7.4-10.4); Platelet Count 225 10x3/uL (130-400); RBC Distribution Width 12.6 % (11.5-14.5); Red Blood Cell (RBC) Count 4.35 mill/uL (4.70-6.10); White Blood Cell (WBC) Count 11.1 10x3/uL (4.8-10.8)
[2022-11-09 07:31] LABS: Anion Gap 17 mmol/L (10-20); BUN (Urea Nitrogen) 13 mg/dL (8.4-25.7); Calc. Creatinine Clearance 74 mL/min (70-130); Calcium 8.8 mg/dL (7.8-10.44); Carbon Dioxide 21 mmol/L (23-31); Chloride 104 mmol/L (98-107); Estimated GFR 67; Glucose 131 mg/dL (83-110); Sodium 138 mmol/L (136-145)
[2022-11-09] MEDS: Aspirin 81 mg Enteric Coated Tablet PO SCH (08:49)
[2022-11-09] MEDS: Tamsulosin HCl 0.4 MG CAP PO SCH (08:49)
[2022-11-09] MEDS: Metoprolol Tartrate 25 MG TAB PO SCH ×2 (08:49→20:31)
[2022-11-09] MEDS: Losartan 25 MG TAB PO SCH (08:49)
[2022-11-09] MEDS: lamoTRIgine 100 MG TAB PO SCH (20:31)
[2022-11-09] MEDS: Rosuvastatin 20 MG TAB PO SCH (20:31)
[2022-11-09] MEDS: Melatonin 3 MG TAB PO PRN (20:32)
[2022-11-10] MEDS: Ondansetron PF 4 MG/2 ML Vial IVP PRN ×3 (00:23→13:49)
[2022-11-10] MEDS: Sodium Chloride 0.9% 1,000 ML IV SCH ×2 (06:10→17:05)
[2022-11-10] MEDS: Metoprolol Tartrate 25 MG TAB PO SCH ×2 (08:24→21:16)
[2022-11-10] MEDS: Aspirin 81 mg Enteric Coated Tablet PO SCH (08:24)
[2022-11-10] MEDS: Tamsulosin HCl 0.4 MG CAP PO SCH (08:24)
[2022-11-10] MEDS: Acetaminophen 325 MG TAB PO PRN (08:30)
[2022-11-10 09:20] LABS: #Eosinphils 0.2 thou/uL (0.0-0.7); #Lymphocytes 1.4 thou/uL (1.20-3.40); #Monocytes 1.4 thou/uL (0.11-0.59); #Neutrophils 8.8 thou/uL (1.40-6.50); %Basophils 0.3 % (0.0-1.0); %Eosinophils 1.8 % (0.0-10.0); %Lymphocytes 11.8 % (21.0-51.0); %Monocytes 11.5 % (0.0-10.0); %Neutrophils 74.6 % (42.0-75.0); Hemoglobin 13.6 g/dL (14.0-18.0); Mean Corpuscular HGB CONC 32.5 g/dL (32.0-36.0); Mean Corpuscular Hemoglobin 33.2 pg (27.0-31.0); Mean Platelet Volume 6.6 fL (7.4-10.4); Platelet Count 235 10x3/uL (130-400); RBC Distribution Width 12.5 % (11.5-14.5); Red Blood Cell (RBC) Count 4.09 mill/uL (4.70-6.10); White Blood Cell (WBC) Count 11.9 10x3/uL (4.8-10.8)
[2022-11-10 09:36] LABS: Anion Gap 15 mmol/L (10-20); BUN (Urea Nitrogen) 13 mg/dL (8.4-25.7); Calc. Creatinine Clearance 67 mL/min (70-130); Calcium 8.5 mg/dL (7.8-10.44); Carbon Dioxide 23 mmol/L (23-31); Chloride 103 mmol/L (98-107); Estimated GFR 59; Glucose 142 mg/dL (83-110); Potassium 4.9 mmol/L (3.5-5.1); Sodium 136 mmol/L (136-145)
[2022-11-10] MEDS ORDERED: Iopamidol-370 76% 500 ML 1 ML ONE (10:38)
[2022-11-10] MEDS ORDERED: Pantoprazole 40 MG VIAL IVP SCH (12:30)
[2022-11-10] MEDS ORDERED: Ampicillin 2 GM in Sodium Chloride 0.9% 100 ML IVPB SCH (17:00)
[2022-11-10] MEDS: Ampicillin/Sulbactam 3 GM in Sodium Chloride 0.9% 100 ML IVPB SCH ×2 (17:58→23:21)
[2022-11-10] MEDS ORDERED: Ampicillin/Sulbactam 1.5 GM in Sodium Chloride 0.9% 100 ML IVPB SCH (18:00)
[2022-11-10] MEDS: lamoTRIgine 100 MG TAB PO SCH (21:16)
[2022-11-10] MEDS: Rosuvastatin 20 MG TAB PO SCH (21:16)
[2022-11-11] MEDS: Ampicillin/Sulbactam 3 GM in Sodium Chloride 0.9% 100 ML IVPB SCH ×4 (05:19→23:37)
[2022-11-11 06:20] LABS: Anion Gap 11 mmol/L (10-20); BUN (Urea Nitrogen) 14 mg/dL (8.4-25.7); Calc. Creatinine Clearance 74 mL/min (70-130); Calcium 8.6 mg/dL (7.8-10.44); Carbon Dioxide 27 mmol/L (23-31); Chloride 104 mmol/L (98-107); Estimated GFR 67; Glucose 98 mg/dL (83-110); Potassium 4.2 mmol/L (3.5-5.1); Sodium 138 mmol/L (136-145)
[2022-11-11 06:40] LABS: Mean Corpuscular HGB CONC 32.9 g/dL (32.0-36.0); Mean Corpuscular Hemoglobin 33.6 pg (27.0-31.0); Mean Platelet Volume 6.5 fL (7.4-10.4); Platelet Count 214 10x3/uL (130-400); RBC Distribution Width 12.5 % (11.5-14.5); Red Blood Cell (RBC) Count 3.87 mill/uL (4.70-6.10); White Blood Cell (WBC) Count 8.2 10x3/uL (4.8-10.8)
[2022-11-11 06:41] LABS: Band 16 % (5-11); Eosinophils 6 % (0-10); Lymphocytes 23 % (21-51); MDiff Complete? YES; Macrocytosis MODERATE=16-30 cells (100X) (0-5/hpf); Monocytes 12 % (0-10); Neutrophil 43 % (42-75); Ovalocytes SLIGHT = 2-5 cells (100X) (0-1/hpf); Platelet Morphology Comment Appears Adequate
[2022-11-11] MEDS: Aspirin 81 mg Enteric Coated Tablet PO SCH (08:35)
[2022-11-11] MEDS: Tamsulosin HCl 0.4 MG CAP PO SCH (08:36)
[2022-11-11] MEDS: Metoprolol Tartrate 25 MG TAB PO SCH ×2 (08:36→21:37)
[2022-11-11] MEDS: Sodium Chloride 0.9% 1,000 ML IV SCH (14:37)
[2022-11-11] MEDS: Rosuvastatin 20 MG TAB PO SCH (21:37)
[2022-11-11] MEDS: lamoTRIgine 100 MG TAB PO SCH (21:39)
[2022-11-12] MEDS: Ampicillin/Sulbactam 3 GM in Sodium Chloride 0.9% 100 ML IVPB SCH ×4 (04:31→23:29)
[2022-11-12 06:59] LABS: Anion Gap 12 mmol/L (10-20); BUN (Urea Nitrogen) 13 mg/dL (8.4-25.7); Calc. Creatinine Clearance 81 mL/min (70-130); Calcium 8.3 mg/dL (7.8-10.44); Carbon Dioxide 25 mmol/L (23-31); Chloride 104 mmol/L (98-107); Estimated GFR 75; Glucose 115 mg/dL (83-110); Potassium 3.8 mmol/L (3.5-5.1); Sodium 137 mmol/L (136-145)
[2022-11-12] MEDS: Metoprolol Tartrate 25 MG TAB PO SCH ×2 (08:24→20:20)
[2022-11-12] MEDS: Tamsulosin HCl 0.4 MG CAP PO SCH (08:24)
[2022-11-12] MEDS: Aspirin 81 mg Enteric Coated Tablet PO SCH (08:25)
[2022-11-12] MEDS: Sodium Chloride 0.9% 1,000 ML IV SCH (08:25)
[2022-11-12] MEDS: Ondansetron PF 4 MG/2 ML Vial IVP PRN (11:07)
[2022-11-12] MEDS ORDERED: Promethazine HCl 25 MG in Sodium Chloride 0.9% 50 ML IVPB PRN (12:42)
[2022-11-12] MEDS: Rosuvastatin 20 MG TAB PO SCH (20:20)
[2022-11-12] MEDS: lamoTRIgine 100 MG TAB PO SCH (20:28)
[2022-11-13] MEDS: TRIAZOLAM 0.25 MG PO PRN (01:45)
[2022-11-13] MEDS ORDERED: OLANZapine 10 MG VIAL IM SCH (04:15)
[2022-11-13] MEDS ORDERED: Sterile Water 10 ML VIAL FS PRN (04:15)
[2022-11-13] MEDS: Ampicillin/Sulbactam 3 GM in Sodium Chloride 0.9% 100 ML IVPB SCH ×4 (04:48→17:59)
[2022-11-13] MEDS ORDERED: Lorazepam 2 MG/ML VIAL ONE (07:07)
[2022-11-13] MEDS ORDERED: Ziprasidone 20 MG VIAL IM SCH (08:45)
[2022-11-13] MEDS: Aspirin 81 mg Enteric Coated Tablet PO SCH (09:47)
[2022-11-13] MEDS: Metoprolol Tartrate 25 MG TAB PO SCH ×2 (09:48→21:55)
[2022-11-13] MEDS: Tamsulosin HCl 0.4 MG CAP PO SCH (09:48)
[2022-11-13] MEDS: Rosuvastatin 20 MG TAB PO SCH (21:55)
[2022-11-13] MEDS: lamoTRIgine 100 MG TAB PO SCH (21:55)
[2022-11-13] MEDS: Melatonin 3 MG TAB PO PRN (22:05)
[2022-11-14] MEDS: Acetaminophen 325 MG TAB PO PRN ×2 (06:19→21:45)
[2022-11-14 06:57] LABS: #Eosinphils 0.2 thou/uL (0.0-0.7); #Lymphocytes 2.2 thou/uL (1.20-3.40); #Monocytes 1.2 thou/uL (0.11-0.59); #Neutrophils 5.4 thou/uL (1.40-6.50); %Basophils 0.3 % (0.0-1.0); %Eosinophils 2.2 % (0.0-10.0); %Lymphocytes 24.7 % (21.0-51.0); %Monocytes 13.2 % (0.0-10.0); %Neutrophils 59.7 % (42.0-75.0); Hemoglobin 11.9 g/dL (14.0-18.0); Mean Corpuscular HGB CONC 32.2 g/dL (32.0-36.0); Mean Corpuscular Hemoglobin 32.8 pg (27.0-31.0); Mean Platelet Volume 6.4 fL (7.4-10.4); Platelet Count 282 10x3/uL (130-400); RBC Distribution Width 12.4 % (11.5-14.5); Red Blood Cell (RBC) Count 3.63 mill/uL (4.70-6.10)
[2022-11-14 07:19] LABS: ALT (SGPT) 43 U/L (8-55); AST (SGOT) 53 U/L (5-34); Albumin 2.9 g/dL (3.4-4.8); Alkaline Phosphatase 48 U/L (40-110); Anion Gap 14 mmol/L (10-20); BUN (Urea Nitrogen) 9 mg/dL (8.4-25.7); Bilirubin, Total 0.4 mg/dL (0.2-1.2); Calc. Creatinine Clearance 81 mL/min (70-130); Calcium 8.6 mg/dL (7.8-10.44); Carbon Dioxide 23 mmol/L (23-31); Chloride 106 mmol/L (98-107); Estimated GFR 75; Globulin 3.2 g/dL (2.4-3.5); Glucose 99 mg/dL (83-110); Potassium 3.8 mmol/L (3.5-5.1); Protein, Total 6.1 g/dL (5.8-8.1); Sodium 139 mmol/L (136-145)
[2022-11-14] MEDS: Tamsulosin HCl 0.4 MG CAP PO SCH (09:01)
[2022-11-14] MEDS: Metoprolol Tartrate 25 MG TAB PO SCH ×2 (09:01→21:45)
[2022-11-14] MEDS: Aspirin 81 mg Enteric Coated Tablet PO SCH (09:02)
[2022-11-14 12:15] LABS: Bacteria/HPF None Seen HPF (None Seen); Bilirubin Negative (Negative); Blood, Urine 3+ (Negative); CAUTI Indications for Culture Alt mental st,lethar; Clarity Turbid (Clear); Glucose, Urine (Dipstick) Normal (Negative); Ketone, Urine 100 mg/dL (Negative); Leukocyte 25 Leu/uL (Negative); Nitrite Negative (Negative); Protein, Urine (Dipstick) 70 mg/dL (Neg-Trace); RBC/HPF Greater than 50 HPF (0-3); Specific Gravity, Urine 1.031 (1.002-1.036); Squamous Epithelial 0-3 HPF (0-3); Urobilinogen Normal mg/dL (Less than 2)
[2022-11-14 12:17] LABS: Urine Culture Reflex No No
[2022-11-14] MEDS: Rosuvastatin 20 MG TAB PO SCH (21:45)
[2022-11-14] MEDS: Melatonin 3 MG TAB PO PRN (21:45)
[2022-11-14] MEDS: lamoTRIgine 100 MG TAB PO SCH (21:52)
[2022-11-14] MEDS ORDERED: Melatonin 3 MG TAB PO SCH (23:30)
[2022-11-15] MEDS ORDERED: Sterile Water 10 ML VIAL FS PRN (03:15)
[2022-11-15] MEDS ORDERED: OLANZapine 10 MG VIAL IM SCH (03:15)
[2022-11-15] MEDS: Acetaminophen 325 MG TAB PO PRN (05:57)
[2022-11-15] MEDS: Aspirin 81 mg Enteric Coated Tablet PO SCH (09:44)
[2022-11-15] MEDS: Tamsulosin HCl 0.4 MG CAP PO SCH (09:44)
[2022-11-15] MEDS: Metoprolol Tartrate 25 MG TAB PO SCH ×2 (09:44→21:48)
[2022-11-15] MEDS ORDERED: Ziprasidone 20 MG CAP PO SCH (12:00)
[2022-11-15] MEDS: lamoTRIgine 100 MG TAB PO SCH (21:48)
[2022-11-15] MEDS: Rosuvastatin 20 MG TAB PO SCH (21:48)
[2022-11-16 06:39] LABS: #Eosinphils 0.5 thou/uL (0.0-0.7); #Lymphocytes 2.4 thou/uL (1.20-3.40); #Neutrophils 5.4 thou/uL (1.40-6.50); %Basophils 0.5 % (0.0-1.0); %Eosinophils 4.9 % (0.0-10.0); %Lymphocytes 25.3 % (21.0-51.0); %Monocytes 10.8 % (0.0-10.0); %Neutrophils 58.6 % (42.0-75.0); Hemoglobin 12.7 g/dL (14.0-18.0); Mean Corpuscular HGB CONC 32.9 g/dL (32.0-36.0); Mean Corpuscular Hemoglobin 32.8 pg (27.0-31.0); Mean Corpuscular Volume 99.8 fl (78.0-98.0); Mean Platelet Volume 6.1 fL (7.4-10.4); Platelet Count 245 10x3/uL (130-400); RBC Distribution Width 12.5 % (11.5-14.5); Red Blood Cell (RBC) Count 3.87 mill/uL (4.70-6.10); White Blood Cell (WBC) Count 9.3 10x3/uL (4.8-10.8)
[2022-11-16 06:59] LABS: ALT (SGPT) 43 U/L (8-55); AST (SGOT) 36 U/L (5-34); Albumin 2.7 g/dL (3.4-4.8); Alkaline Phosphatase 52 U/L (40-110); Anion Gap 14 mmol/L (10-20); BUN (Urea Nitrogen) 10 mg/dL (8.4-25.7); Bilirubin, Total 0.3 mg/dL (0.2-1.2); Calc. Creatinine Clearance 87 mL/min (70-130); Calcium 8.4 mg/dL (7.8-10.44); Carbon Dioxide 22 mmol/L (23-31); Chloride 105 mmol/L (98-107); Estimated GFR 82; Glucose 87 mg/dL (83-110); Potassium 3.7 mmol/L (3.5-5.1); Protein, Total 5.7 g/dL (5.8-8.1); Sodium 137 mmol/L (136-145)
[2022-11-16] MEDS: Tamsulosin HCl 0.4 MG CAP PO SCH (09:33)
[2022-11-16] MEDS: Ziprasidone 20 MG CAP PO SCH (09:33)
[2022-11-16] MEDS: Aspirin 81 mg Enteric Coated Tablet PO SCH (09:34)
[2022-11-16] MEDS: Metoprolol Tartrate 25 MG TAB PO SCH ×2 (09:34→20:11)
[2022-11-16] MEDS: lamoTRIgine 100 MG TAB PO SCH (20:13)
[2022-11-16] MEDS: Rosuvastatin 20 MG TAB PO SCH (20:13)
[2022-11-17] MEDS ORDERED: Sterile Water 10 ML VIAL FS PRN (01:15)
[2022-11-17] MEDS ORDERED: Ziprasidone 20 MG VIAL IM SCH (01:15)
[2022-11-17] MEDS: Tamsulosin HCl 0.4 MG CAP PO SCH (08:36)
[2022-11-17] MEDS: Metoprolol Tartrate 25 MG TAB PO SCH ×2 (08:36→20:29)
[2022-11-17] MEDS: Aspirin 81 mg Enteric Coated Tablet PO SCH (08:36)
[2022-11-17] MEDS: Ziprasidone 20 MG CAP PO SCH (08:36)
[2022-11-17] MEDS: lamoTRIgine 100 MG TAB PO SCH (20:31)
[2022-11-17] MEDS: Rosuvastatin 20 MG TAB PO SCH (20:31)
[2022-11-17] MEDS: Melatonin 3 MG TAB PO PRN (22:30)
[2022-11-18] MEDS ORDERED: Ondansetron ODT 4 MG TAB PO PRN (00:01)
[2022-11-18] MEDS: TRIAZOLAM 0.25 MG PO PRN (01:05)
[2022-11-18] MEDS ORDERED: Ziprasidone 20 MG CAP PO SCH (08:00)
[2022-11-18] MEDS: Aspirin 81 mg Enteric Coated Tablet PO SCH (08:01)
[2022-11-18] MEDS: Metoprolol Tartrate 25 MG TAB PO SCH (08:02)
[2022-11-18] MEDS: Tamsulosin HCl 0.4 MG CAP PO SCH (08:02)
[2022-11-18 12:43] VITALS: BP 151/80; TEMP 97.7
== END 2022-11-18 13:16 | DRG 640 ==
LOC: ERS 09:16 → ERHOLD 12:23 → NEURO 17:27 → OBSVTOIN 11-05 13:01 → T4-A 11-05 15:12
PROVIDERS: ADMIT Hospitalist; ATTEND Hospitalist
PROC: 0D9670Z Drainage of Stomach with Drainage Device, Via Natural or Artificial Opening (ICD-10-PCS; principal; 2022-11-11)
DX: E86.9 Volume depletion, unspecified (principal); G93.41 Metabolic encephalopathy; F05 Delirium due to known physiological condition; N30.01 Acute cystitis with hematuria; K56.7 Ileus, unspecified; F03.911 Unspecified dementia, unspecified severity, with agitation; K50.90 Crohn's disease, unspecified, without complications; Z20.822 Contact with and (suspected) exposure to COVID-19; I95.1 Orthostatic hypotension; I10 Essential (primary) hypertension; F31.9 Bipolar disorder, unspecified; E78.5 Hyperlipidemia, unspecified; E86.0 Dehydration; R00.1 Bradycardia, unspecified; N40.1 Benign prostatic hyperplasia with lower urinary tract symptoms; R33.8 Other retention of urine; Y95 Nosocomial condition; Z78.1 Physical restraint status; Z79.899 Other long term (current) drug therapy; Z90.89 Acquired absence of other organs; Z82.49 Family history of ischemic heart disease and other diseases of the circulatory system; Z90.49 Acquired absence of other specified parts of digestive tract; Z85.46 Personal history of malignant neoplasm of prostate
CPT/HCPCS: 36415; 70450; 70551; 71045; 74177; 80048; 80053; 80061; 81001; 81003; 84443; 84484; 85025; 87811; 93005; 93306; 93880; 94760; 95816; 95819; 95957; 96372; 96374; 96375; C9113; G0378; J0295; J1630; J1650; J2060; J2405; J2550; J3490; J7050; Q0162; Q9967; U0003; U0005

== ENCOUNTER 2022-12-06 14:06 | Inpatient (IN) | payer MEDICARE ==
[~2022-12-06 14:06] MED LIST: Iopamidol-370 76% 500 ML 1 ML ONE
[2022-12-06 15:12] LABS: #Basophils 0.1 thou/uL (0.0-0.2); #Eosinphils 0.3 thou/uL (0.0-0.7); #Lymphocytes 3.4 thou/uL (1.20-3.40); #Monocytes 1.2 thou/uL (0.11-0.59); #Neutrophils 6.3 thou/uL (1.40-6.50); %Basophils 0.6 % (0.0-1.0); %Eosinophils 2.7 % (0.0-10.0); %Lymphocytes 30.4 % (21.0-51.0); %Monocytes 10.6 % (0.0-10.0); %Neutrophils 55.7 % (42.0-75.0); Hemoglobin 14.2 g/dL (14.0-18.0); Mean Corpuscular HGB CONC 32.5 g/dL (32.0-36.0); Mean Corpuscular Hemoglobin 32.4 pg (27.0-31.0); Mean Corpuscular Volume 99.9 fl (78.0-98.0); Mean Platelet Volume 7.3 fL (7.4-10.4); Platelet Count 248 10x3/uL (130-400); RBC Distribution Width 13.2 % (11.5-14.5); Red Blood Cell (RBC) Count 4.39 mill/uL (4.70-6.10); White Blood Cell (WBC) Count 11.3 10x3/uL (4.8-10.8)
[2022-12-06 15:31] LABS: ALT (SGPT) 21 U/L (8-55); AST (SGOT) 15 U/L (5-34); Albumin 3.6 g/dL (3.4-4.8); Alkaline Phosphatase 94 U/L (40-110); Anion Gap 18 mmol/L (10-20); BUN (Urea Nitrogen) 81 mg/dL (8.4-25.7); Bilirubin, Total 0.5 mg/dL (0.2-1.2); CK (CPK) 57 U/L (30-200); Calc. Creatinine Clearance 0 mL/min (70-130); Calcium 8.7 mg/dL (7.8-10.44); Carbon Dioxide 19 mmol/L (23-31); Chloride 103 mmol/L (98-107); Estimated GFR 25; Globulin 3.5 g/dL (2.4-3.5); Glucose 116 mg/dL (83-110); Lipase 153 U/L (8-78); Magnesium 2.4 mg/dL (1.6-2.6); Protein, Total 7.1 g/dL (5.8-8.1); Sodium 134 mmol/L (136-145)
[2022-12-06] MEDS ORDERED: CALCIUM GLUC 1 GM/NS 50 ML BAG ONE (16:02)
[2022-12-06] MEDS ORDERED: Calcium Gluc 4.6 MEQ/10 ML (100 MG/ML) ONE (16:03)
[2022-12-06] MEDS ORDERED: Heparin 25,000 units/D5W 500 ML ONE (16:13)
[2022-12-06 16:15] LABS: Bilirubin Negative (Negative); Blood, Urine Negative (Negative); Clarity Clear (Clear); Glucose, Urine (Dipstick) Normal (Negative); Ketone, Urine Negative (Negative); Leukocyte Negative Leu/uL (Negative); Nitrite Negative (Negative); Protein, Urine (Dipstick) Negative (Neg-Trace); Specific Gravity, Urine 1.019 (1.002-1.036); Urobilinogen Normal mg/dL (Less than 2)
[2022-12-06] MEDS ORDERED: Lorazepam 2 MG/ML VIAL SLOW IVP SCH (16:15)
[2022-12-06] MEDS ORDERED: Senokot 8.6 MG TAB PO PRN (16:17)
[2022-12-06] MEDS ORDERED: Heparin 10,000 UNITS/ 10 ML VIAL ONE (16:20)
[2022-12-06] MEDS ORDERED: Acetaminophen 325 MG TAB PO PRN (16:22)
[2022-12-06] MEDS ORDERED: Ondansetron ODT 4 MG TAB PO PRN (16:22)
[2022-12-06] MEDS ORDERED: Heparin 25,000 units/D5W 500 ML IVPB SCH (16:30)
[2022-12-06] MEDS ORDERED: Heparin 10,000 UNITS/ 10 ML VIAL SLOW IVP SCH (16:30)
[2022-12-06] MEDS ORDERED: Dextrose 50% Abboject 50 ML SYRINGE SLOW IVP SCH (16:30)
[2022-12-06] MEDS ORDERED: Insulin Regular 300 UNITS/3 ML VIAL IVP SCH (16:30)
[2022-12-06 16:33] LABS: Prothrombin Time 13.3 sec (12.0-14.7)
[2022-12-06 17:00] LABS: Hemoglobin 13.2 g/dL (14.0-18.0); Platelet Count 209 10x3/uL (130-400)
[2022-12-06] MEDS ORDERED: Furosemide 20 MG/2 ML VIAL ONE (17:40)
[2022-12-06] MEDS: lamoTRIgine 100 MG TAB PO SCH (20:17)
[2022-12-06] MEDS: Famotidine 20 MG TAB PO SCH (20:18)
[2022-12-06] MEDS: ALPRAZolam 0.5 MG TAB PO SCH (20:18)
[2022-12-06] MEDS: Dextrose 5%-Lactated Ringers 1,000 ML IV SCH (20:27)
[2022-12-06 20:39] VITALS: BMI 29.0
[2022-12-06 23:40] LABS: PTT Greater than 250.0 sec (22.9-36.1)
[2022-12-07] MEDS ORDERED: Sodium Chloride 0.9% 1,000 ML IV SCH (00:30)
[2022-12-07 02:12] LABS: #Eosinphils 0.3 thou/uL (0.0-0.7); #Lymphocytes 2.8 thou/uL (1.20-3.40); #Monocytes 0.9 thou/uL (0.11-0.59); #Neutrophils 4.7 thou/uL (1.40-6.50); %Basophils 0.4 % (0.0-1.0); %Eosinophils 3.4 % (0.0-10.0); %Monocytes 10.3 % (0.0-10.0); %Neutrophils 53.9 % (42.0-75.0); Hemoglobin 12.7 g/dL (14.0-18.0); Mean Corpuscular HGB CONC 33.6 g/dL (32.0-36.0); Mean Corpuscular Hemoglobin 33.7 pg (27.0-31.0); Mean Platelet Volume 7.3 fL (7.4-10.4); Platelet Count 174 10x3/uL (130-400); RBC Distribution Width 13.1 % (11.5-14.5); Red Blood Cell (RBC) Count 3.76 mill/uL (4.70-6.10); White Blood Cell (WBC) Count 8.8 10x3/uL (4.8-10.8)
[2022-12-07 02:31] LABS: Anion Gap 15 mmol/L (10-20); BUN (Urea Nitrogen) 69 mg/dL (8.4-25.7); Calc. Creatinine Clearance 38 mL/min (70-130); Calcium 8.7 mg/dL (7.8-10.44); Carbon Dioxide 20 mmol/L (23-31); Chloride 106 mmol/L (98-107); Estimated GFR 35; Glucose 135 mg/dL (83-110); Sodium 136 mmol/L (136-145)
[2022-12-07] MEDS: Dextrose 5%-Lactated Ringers 1,000 ML IV SCH (03:33)
[2022-12-07] MEDS ORDERED: Losartan 25 MG TAB PO SCH (09:00)
[2022-12-07] MEDS ORDERED: Rosuvastatin 5 MG TAB PO SCH (09:00)
[2022-12-07] MEDS: Atorvastatin Calcium 40 MG TAB PO SCH (10:18)
[2022-12-07] MEDS: Tamsulosin HCl 0.4 MG CAP PO SCH (10:18)
[2022-12-07] MEDS: Aspirin Chewable 81 MG TAB PO SCH (10:18)
[2022-12-07] MEDS: Lactated Ringer's 1,000 ML IV SCH ×2 (10:18→21:52)
[2022-12-07] MEDS ORDERED: Loperamide HCl 2 MG CAP PO SCH (21:30)
[2022-12-07] MEDS: lamoTRIgine 100 MG TAB PO SCH (21:52)
[2022-12-07] MEDS: Famotidine 20 MG TAB PO SCH (21:52)
[2022-12-07] MEDS: ALPRAZolam 0.5 MG TAB PO SCH (21:52)
[2022-12-08 02:03] LABS: #Basophils 0.1 thou/uL (0.0-0.2); #Eosinphils 0.3 thou/uL (0.0-0.7); #Lymphocytes 2.9 thou/uL (1.20-3.40); #Neutrophils 4.3 thou/uL (1.40-6.50); %Basophils 0.6 % (0.0-1.0); %Eosinophils 3.7 % (0.0-10.0); %Lymphocytes 33.8 % (21.0-51.0); %Monocytes 11.7 % (0.0-10.0); %Neutrophils 50.2 % (42.0-75.0); Hemoglobin 12.4 g/dL (14.0-18.0); Mean Corpuscular HGB CONC 34.7 g/dL (32.0-36.0); Mean Corpuscular Hemoglobin 35.2 pg (27.0-31.0); Mean Platelet Volume 7.2 fL (7.4-10.4); Platelet Count 180 10x3/uL (130-400); RBC Distribution Width 12.8 % (11.5-14.5); Red Blood Cell (RBC) Count 3.52 mill/uL (4.70-6.10); White Blood Cell (WBC) Count 8.6 10x3/uL (4.8-10.8)
[2022-12-08 02:40] LABS: Anion Gap 13 mmol/L (10-20); BUN (Urea Nitrogen) 47 mg/dL (8.4-25.7); Calc. Creatinine Clearance 56 mL/min (70-130); Calcium 8.5 mg/dL (7.8-10.44); Carbon Dioxide 23 mmol/L (23-31); Chloride 105 mmol/L (98-107); Estimated GFR 54; Glucose 151 mg/dL (83-110); Potassium 4.8 mmol/L (3.5-5.1); Sodium 136 mmol/L (136-145)
[2022-12-08] MEDS: Aspirin Chewable 81 MG TAB PO SCH (09:18)
[2022-12-08] MEDS: Atorvastatin Calcium 40 MG TAB PO SCH (09:19)
[2022-12-08] MEDS: Loperamide HCl 2 MG CAP PO PRN ×2 (09:19→21:31)
[2022-12-08] MEDS: Tamsulosin HCl 0.4 MG CAP PO SCH (09:19)
[2022-12-08 16:32] LABS: Hemoglobin 11.7 g/dL (14.0-18.0); Platelet Count 154 10x3/uL (130-400)
[2022-12-08] MEDS: Lactated Ringer's 1,000 ML IV SCH (18:06)
[2022-12-08] MEDS: ALPRAZolam 0.5 MG TAB PO SCH (21:31)
[2022-12-08] MEDS: lamoTRIgine 100 MG TAB PO SCH (21:31)
[2022-12-08] MEDS: Famotidine 20 MG TAB PO SCH (21:31)
[2022-12-08] MEDS: Calcium Carbonate 500 MG ChewTAB PO PRN (21:31)
[2022-12-09] MEDS: Lactated Ringer's 1,000 ML IV SCH ×2 (03:55→17:20)
[2022-12-09 04:31] LABS: SARS-CoV-2 NAA Rapid Test Not Detected (NotDetected)
[2022-12-09] MEDS ORDERED: PROPOFOL 200 MG/20 ML VIAL ONE (08:40)
[2022-12-09] MEDS ORDERED: FLU VACC QS2022-23(65YR UP)/PF 240 MCG/0.7 ML SYRINGE IM ONE (09:00)
[2022-12-09] MEDS ORDERED: HYDROmorphone 2 MG/ML VIAL SLOW IVP PRN (09:29)
[2022-12-09] MEDS ORDERED: Ondansetron HCl/PF 4 MG/2 ML Vial IVP PRN (09:29)
[2022-12-09] MEDS ORDERED: Promethazine HCl 25 MG/ML VIAL IM PRN (09:29)
[2022-12-09] MEDS ORDERED: PACU-Morphine 4MG/ML VIAL SLOW IVP PRN (09:29)
[2022-12-09] MEDS: Aspirin Chewable 81 MG TAB PO SCH (10:52)
[2022-12-09] MEDS: Tamsulosin HCl 0.4 MG CAP PO SCH (10:52)
[2022-12-09] MEDS: Atorvastatin Calcium 40 MG TAB PO SCH (10:53)
[2022-12-09 11:42] LABS: Hemoglobin 11.7 g/dL (14.0-18.0); Mean Corpuscular HGB CONC 31.6 g/dL (32.0-36.0); Mean Corpuscular Hemoglobin 32.7 pg (27.0-31.0); Mean Platelet Volume 7.4 fL (7.4-10.4); Platelet Count 146 10x3/uL (130-400); Red Blood Cell (RBC) Count 3.57 mill/uL (4.70-6.10); White Blood Cell (WBC) Count 5.8 10x3/uL (4.8-10.8)
[2022-12-09 11:51] LABS: Anion Gap 11 mmol/L (10-20); BUN (Urea Nitrogen) 23 mg/dL (8.4-25.7); Calc. Creatinine Clearance 64 mL/min (70-130); Calcium 8.3 mg/dL (7.8-10.44); Carbon Dioxide 25 mmol/L (23-31); Chloride 106 mmol/L (98-107); Estimated GFR 64; Glucose 100 mg/dL (83-110); Potassium 4.5 mmol/L (3.5-5.1); Sodium 137 mmol/L (136-145)
[2022-12-09 12:05] LABS: Eosinophils 8 % (0-10); Hypochromia SLIGHT = 6-15 cells (100X) (0-5/hpf); Lymphocytes 28 % (21-51); MDiff Complete? YES; Monocytes 8 % (0-10); Neutrophil 56 % (42-75); Platelet Morphology Comment Appears Adequate; Vacuoles SLIGHT
[2022-12-09] MEDS ORDERED: Ipratropium/Albuterol 3 ML NEB NEB PRN (16:33)
[2022-12-09] MEDS ORDERED: Ipratropium/Albuterol 3 ML NEB ONE (16:44)
[2022-12-09] MEDS ORDERED: Rifaximin 550 MG TAB PO SCH (17:15)
[2022-12-09] MEDS: ALPRAZolam 0.5 MG TAB PO SCH (21:22)
[2022-12-09] MEDS: Rifaximin 550 MG TAB PO SCH (21:23)
[2022-12-09] MEDS: lamoTRIgine 100 MG TAB PO SCH (21:23)
[2022-12-10 07:43] LABS: #Eosinphils 0.3 thou/uL (0.0-0.7); #Lymphocytes 1.8 thou/uL (1.20-3.40); #Neutrophils 5.4 thou/uL (1.40-6.50); %Basophils 0.2 % (0.0-1.0); %Eosinophils 3.3 % (0.0-10.0); %Lymphocytes 21.3 % (21.0-51.0); %Monocytes 11.3 % (0.0-10.0); %Neutrophils 63.8 % (42.0-75.0); Hemoglobin 11.2 g/dL (14.0-18.0); Mean Corpuscular HGB CONC 32.3 g/dL (32.0-36.0); Mean Platelet Volume 7.9 fL (7.4-10.4); Platelet Count 145 10x3/uL (130-400); RBC Distribution Width 12.7 % (11.5-14.5); White Blood Cell (WBC) Count 8.5 10x3/uL (4.8-10.8)
[2022-12-10 08:31] LABS: Anion Gap 14 mmol/L (10-20); BUN (Urea Nitrogen) 17 mg/dL (8.4-25.7); Calc. Creatinine Clearance 69 mL/min (70-130); Calcium 8.4 mg/dL (7.8-10.44); Carbon Dioxide 22 mmol/L (23-31); Chloride 104 mmol/L (98-107); Estimated GFR 70; Glucose 158 mg/dL (83-110); Potassium 4.1 mmol/L (3.5-5.1); Sodium 136 mmol/L (136-145)
[2022-12-10] MEDS: Tamsulosin HCl 0.4 MG CAP PO SCH (09:30)
[2022-12-10] MEDS: Rifaximin 550 MG TAB PO SCH ×3 (09:31→19:51)
[2022-12-10] MEDS: Atorvastatin Calcium 40 MG TAB PO SCH (09:31)
[2022-12-10] MEDS: Apixaban 5 MG TAB PO SCH ×2 (09:31→19:51)
[2022-12-10] MEDS: Aspirin Chewable 81 MG TAB PO SCH (09:32)
[2022-12-10] MEDS: Nystatin Cream 30 GM TUBE TOP SCH ×3 (09:45→19:57)
[2022-12-10] MEDS: lamoTRIgine 100 MG TAB PO SCH (19:51)
[2022-12-10] MEDS: Temazepam 15 MG CAP PO SCH (19:51)
[2022-12-11 05:34] LABS: #Eosinphils 0.3 thou/uL (0.0-0.7); #Lymphocytes 1.8 thou/uL (1.20-3.40); #Monocytes 0.9 thou/uL (0.11-0.59); %Basophils 0.1 % (0.0-1.0); %Eosinophils 3.4 % (0.0-10.0); %Lymphocytes 22.7 % (21.0-51.0); %Monocytes 10.9 % (0.0-10.0); Hemoglobin 11.2 g/dL (14.0-18.0); Mean Corpuscular HGB CONC 33.1 g/dL (32.0-36.0); Mean Corpuscular Hemoglobin 33.9 pg (27.0-31.0); Mean Platelet Volume 7.6 fL (7.4-10.4); Platelet Count 181 10x3/uL (130-400); RBC Distribution Width 12.7 % (11.5-14.5); White Blood Cell (WBC) Count 7.9 10x3/uL (4.8-10.8)
[2022-12-11 05:48] LABS: Anion Gap 12 mmol/L (10-20); BUN (Urea Nitrogen) 13 mg/dL (8.4-25.7); Calc. Creatinine Clearance 78 mL/min (70-130); Calcium 8.4 mg/dL (7.8-10.44); Carbon Dioxide 24 mmol/L (23-31); Chloride 105 mmol/L (98-107); Estimated GFR 80; Glucose 113 mg/dL (83-110); Potassium 4.3 mmol/L (3.5-5.1); Sodium 137 mmol/L (136-145)
[2022-12-11] MEDS: Aspirin Chewable 81 MG TAB PO SCH (09:15)
[2022-12-11] MEDS: Apixaban 5 MG TAB PO SCH ×2 (09:16→20:38)
[2022-12-11] MEDS: Tamsulosin HCl 0.4 MG CAP PO SCH (09:16)
[2022-12-11] MEDS: Rifaximin 550 MG TAB PO SCH ×3 (09:16→20:38)
[2022-12-11] MEDS: ALPRAZolam 0.25 MG TAB PO PRN ×2 (09:16→17:50)
[2022-12-11] MEDS: Nystatin Cream 30 GM TUBE TOP SCH ×3 (09:16→20:42)
[2022-12-11] MEDS: Atorvastatin Calcium 40 MG TAB PO SCH (09:16)
[2022-12-11] MEDS: Temazepam 15 MG CAP PO SCH (20:38)
[2022-12-11] MEDS: lamoTRIgine 100 MG TAB PO SCH (20:38)
[2022-12-12 07:41] LABS: #Eosinphils 0.4 thou/uL (0.0-0.7); #Lymphocytes 2.2 thou/uL (1.20-3.40); #Neutrophils 4.8 thou/uL (1.40-6.50); %Basophils 0.2 % (0.0-1.0); %Eosinophils 4.9 % (0.0-10.0); %Lymphocytes 25.8 % (21.0-51.0); %Monocytes 11.9 % (0.0-10.0); %Neutrophils 57.2 % (42.0-75.0); Hemoglobin 11.1 g/dL (14.0-18.0); Mean Corpuscular HGB CONC 31.7 g/dL (32.0-36.0); Mean Corpuscular Hemoglobin 32.7 pg (27.0-31.0); Mean Platelet Volume 7.2 fL (7.4-10.4); Platelet Count 175 10x3/uL (130-400); RBC Distribution Width 12.8 % (11.5-14.5); Red Blood Cell (RBC) Count 3.39 mill/uL (4.70-6.10); White Blood Cell (WBC) Count 8.4 10x3/uL (4.8-10.8)
[2022-12-12 08:03] LABS: Anion Gap 14 mmol/L (10-20); BUN (Urea Nitrogen) 14 mg/dL (8.4-25.7); Calc. Creatinine Clearance 78 mL/min (70-130); Calcium 8.4 mg/dL (7.8-10.44); Carbon Dioxide 24 mmol/L (23-31); Chloride 104 mmol/L (98-107); Estimated GFR 80; Glucose 106 mg/dL (83-110); Potassium 4.1 mmol/L (3.5-5.1); Sodium 138 mmol/L (136-145)
[2022-12-12] MEDS: Rifaximin 550 MG TAB PO SCH ×3 (10:23→20:43)
[2022-12-12] MEDS: Nystatin Cream 30 GM TUBE TOP SCH ×3 (10:24→20:46)
[2022-12-12] MEDS: Tamsulosin HCl 0.4 MG CAP PO SCH (10:24)
[2022-12-12] MEDS: Atorvastatin Calcium 40 MG TAB PO SCH (10:24)
[2022-12-12] MEDS: Aspirin Chewable 81 MG TAB PO SCH (10:24)
[2022-12-12] MEDS: Apixaban 5 MG TAB PO SCH ×2 (10:24→20:44)
[2022-12-12] MEDS: ALPRAZolam 0.25 MG TAB PO PRN (13:19)
[2022-12-12] MEDS: lamoTRIgine 100 MG TAB PO SCH (20:43)
[2022-12-12] MEDS: Temazepam 15 MG CAP PO SCH (20:44)
[2022-12-13] MEDS: Aspirin Chewable 81 MG TAB PO SCH (09:24)
[2022-12-13] MEDS: Atorvastatin Calcium 40 MG TAB PO SCH (09:24)
[2022-12-13] MEDS: Apixaban 5 MG TAB PO SCH ×2 (09:25→21:01)
[2022-12-13] MEDS: Rifaximin 550 MG TAB PO SCH ×3 (09:25→21:01)
[2022-12-13] MEDS: Tamsulosin HCl 0.4 MG CAP PO SCH (09:25)
[2022-12-13] MEDS: Nystatin Cream 30 GM TUBE TOP SCH ×3 (09:30→21:01)
[2022-12-13 11:15] LABS: Anion Gap 14 mmol/L (10-20); BUN (Urea Nitrogen) 13 mg/dL (8.4-25.7); Calc. Creatinine Clearance 83 mL/min (70-130); Calcium 8.3 mg/dL (7.8-10.44); Carbon Dioxide 23 mmol/L (23-31); Chloride 104 mmol/L (98-107); Estimated GFR 85; Glucose 140 mg/dL (83-110); Potassium 3.8 mmol/L (3.5-5.1); Sodium 137 mmol/L (136-145)
[2022-12-13] MEDS: ALPRAZolam 0.25 MG TAB PO PRN ×2 (14:00→22:06)
[2022-12-13] MEDS: Temazepam 15 MG CAP PO SCH (21:01)
[2022-12-13] MEDS: lamoTRIgine 100 MG TAB PO SCH (21:09)
[2022-12-13] MEDS: Calcium Carbonate 500 MG ChewTAB PO PRN (22:03)
[2022-12-14] MEDS: Rifaximin 550 MG TAB PO SCH ×3 (10:26→21:28)
[2022-12-14] MEDS: Apixaban 5 MG TAB PO SCH ×2 (10:26→21:28)
[2022-12-14] MEDS: Tamsulosin HCl 0.4 MG CAP PO SCH (10:27)
[2022-12-14] MEDS: Aspirin Chewable 81 MG TAB PO SCH (10:27)
[2022-12-14] MEDS: Atorvastatin Calcium 40 MG TAB PO SCH (10:28)
[2022-12-14] MEDS: Nystatin Cream 30 GM TUBE TOP SCH ×3 (10:40→21:29)
[2022-12-14] MEDS: ALPRAZolam 0.25 MG TAB PO PRN (15:07)
[2022-12-14] MEDS: lamoTRIgine 100 MG TAB PO SCH (21:27)
[2022-12-14] MEDS: Temazepam 15 MG CAP PO SCH (21:29)
[2022-12-15 03:52] LABS: Hemoglobin 11.3 g/dL (14.0-18.0)
[2022-12-15] MEDS ORDERED: Apixaban 5 MG TAB PO SCH (09:00)
[2022-12-15] MEDS: Atorvastatin Calcium 40 MG TAB PO SCH (09:29)
[2022-12-15] MEDS: Nystatin Cream 30 GM TUBE TOP SCH (09:29)
[2022-12-15] MEDS: Aspirin Chewable 81 MG TAB PO SCH (09:29)
[2022-12-15] MEDS: Tamsulosin HCl 0.4 MG CAP PO SCH (09:29)
[2022-12-15] MEDS: Rifaximin 550 MG TAB PO SCH ×2 (09:29→15:18)
[2022-12-15 12:26] VITALS: TEMP 97.6
[2022-12-15 12:27] VITALS: BP 136/68
[2022-12-15] MEDS: ALPRAZolam 0.25 MG TAB PO PRN (15:18)
[2022-12-17] MEDS ORDERED: Apixaban 5 MG TAB PO SCH (09:00)
== END 2022-12-15 15:30 | DRG 347 ==
LOC: ERS 14:06 → ERHOLD 16:22 → IMCU/EMU 19:00 → 2NO 12-09 20:55
PROVIDERS: ADMIT Student in an Organized Health Care Education/Training Program; ATTEND Internal Medicine
PROC: 0D7Q8ZZ Dilation of Anus, Via Natural or Artificial Opening Endoscopic (ICD-10-PCS; principal; 2022-12-09)
PROC: 0DBB8ZZ Excision of Ileum, Via Natural or Artificial Opening Endoscopic (ICD-10-PCS; 2022-12-09)
PROC: 0DBB8ZX Excision of Ileum, Via Natural or Artificial Opening Endoscopic, Diagnostic (ICD-10-PCS; 2022-12-09)
PROC: 0DBA8ZX Excision of Jejunum, Via Natural or Artificial Opening Endoscopic, Diagnostic (ICD-10-PCS; 2022-12-09)
DX: K62.4 Stenosis of anus and rectum (principal); I26.94 Multiple subsegmental thrombotic pulmonary emboli without acute cor pulmonale; K28.4 Chronic or unspecified gastrojejunal ulcer with hemorrhage; N17.9 Acute kidney failure, unspecified; K50.90 Crohn's disease, unspecified, without complications; R04.2 Hemoptysis; E87.20 Acidosis, unspecified; Z20.822 Contact with and (suspected) exposure to COVID-19; E87.6 Hypokalemia; N40.1 Benign prostatic hyperplasia with lower urinary tract symptoms; R53.81 Other malaise; I95.9 Hypotension, unspecified; D64.9 Anemia, unspecified; R15.9 Full incontinence of feces; K63.5 Polyp of colon; E86.0 Dehydration; R33.8 Other retention of urine; F31.9 Bipolar disorder, unspecified; E78.5 Hyperlipidemia, unspecified; I10 Essential (primary) hypertension; Z90.89 Acquired absence of other organs; Z79.899 Other long term (current) drug therapy; Z79.82 Long term (current) use of aspirin; Z90.49 Acquired absence of other specified parts of digestive tract; Z82.49 Family history of ischemic heart disease and other diseases of the circulatory system
CPT/HCPCS: 36415; 51702; 71045; 74018; 74177; 80048; 80053; 81003; 82550; 83690; 83735; 83880; 84484; 85014; 85018; 85025; 85049; 85610; 85730; 86850; 86900; 86901; 87324; 87449; 87811; 88305; 93005; 93306; 94640; 96365; 96366; 96375; 96376; J0610; J0611; J1644; J1650; J1815; J1940; J2704; J7050; J7120; J7620; J7999; Q9967; U0002

== ENCOUNTER 2023-01-09 04:21 | Emergency (ER) | payer MEDICARE | END 2023-01-09 08:10 | disposition home or self-care (01) | LOC: ERS 04:21 | DX: T85.9XXA Unspecified complication of internal prosthetic device, implant and graft, initial encounter (principal); I10 Essential (primary) hypertension; E78.5 Hyperlipidemia, unspecified; Z79.82 Long term (current) use of aspirin; Z79.01 Long term (current) use of anticoagulants; Z79.899 Other long term (current) drug therapy | CPT/HCPCS: 51702 ==

== ENCOUNTER 2023-01-17 09:03 | Emergency (ER) | payer MEDICARE ==
[~2023-01-17 09:03] MED LIST changes: -Iopamidol-370 76% 500 ML 1 ML ONE; +Iopamidol-370 76% 500 ML MDV (1 ML CHARGE) ONE
[2023-01-17 09:38] LABS: #Basophils 0.1 thou/uL (0.0-0.2); #Eosinphils 0.1 thou/uL (0.0-0.7); #Lymphocytes 2.8 thou/uL (1.20-3.40); #Monocytes 1.1 thou/uL (0.11-0.59); #Neutrophils 4.5 thou/uL (1.40-6.50); %Basophils 0.6 % (0.0-1.0); %Eosinophils 1.3 % (0.0-10.0); %Monocytes 13.2 % (0.0-10.0); %Neutrophils 52.9 % (42.0-75.0); Mean Corpuscular HGB CONC 31.5 g/dL (32.0-36.0); Mean Corpuscular Hemoglobin 32.4 pg (27.0-31.0); Mean Platelet Volume 6.7 fL (7.4-10.4); Platelet Count 217 10x3/uL (130-400); RBC Distribution Width 13.7 % (11.5-14.5); White Blood Cell (WBC) Count 8.6 10x3/uL (4.8-10.8)
[2023-01-17 09:50] LABS: INR-International Normal Ratio 1.5; PTT 40.2 sec (22.9-36.1); Prothrombin Time 18.4 sec (12.0-14.7)
[2023-01-17 10:02] LABS: Bacteria/HPF 1+ HPF (None Seen); Bilirubin Negative (Negative); Blood, Urine Negative (Negative); Clarity Clear (Clear); Glucose, Urine (Dipstick) Normal (Negative); Ketone, Urine Negative (Negative); Leukocyte Negative Leu/uL (Negative); Nitrite Negative (Negative); Protein, Urine (Dipstick) Negative (Neg-Trace); RBC/HPF 0-3 HPF (0-3); Specific Gravity, Urine 1.009 (1.002-1.036); Squamous Epithelial 0-3 HPF (0-3); Urobilinogen Normal mg/dL (Less than 2); WBC/HPF 0-3 HPF (0-3); pH, Urine 5.5 (5.0-9.0)
[2023-01-17 10:08] LABS: ALT (SGPT) 14 U/L (8-55); Albumin 3.4 g/dL (3.4-4.8); Alkaline Phosphatase 57 U/L (40-110); BUN (Urea Nitrogen) 28 mg/dL (8.4-25.7); Bilirubin, Total 0.5 mg/dL (0.2-1.2); Calc. Creatinine Clearance 0 mL/min (70-130); Calcium 9.1 mg/dL (7.8-10.44); Carbon Dioxide 19 mmol/L (23-31); Chloride 109 mmol/L (98-107); Estimated GFR 30; Globulin 3.4 g/dL (2.4-3.5); Glucose 117 mg/dL (83-110); Protein, Total 6.8 g/dL (5.8-8.1); Sodium 139 mmol/L (136-145)
[2023-01-17 10:11] LABS: Anion Gap 16 mmol/L (10-20); Potassium 5.2 mmol/L (3.5-5.1)
[2023-01-17 10:17] LABS: AST (SGOT) 17 U/L (5-34)
== END 2023-01-17 11:34 | disposition home or self-care (01) ==
LOC: ERS 09:03
DX: M79.604 Pain in right leg (principal); R06.02 Shortness of breath; I10 Essential (primary) hypertension; E78.5 Hyperlipidemia, unspecified; Z86.73 Personal history of transient ischemic attack (TIA), and cerebral infarction without residual deficits
CPT/HCPCS: 71275; 80053; 81003; 85025; 85610; 85730; 87086; 94760; Q9967

== ENCOUNTER 2023-04-30 03:49 | Inpatient (IN) | payer MEDICARE ==
[2023-04-30] MEDS ORDERED: fentaNYL 50 mcg/mL 1 mL Vial ONE (04:34)
[2023-04-30 04:59] LABS: #Eosinphils 0.3 thou/uL (0.0-0.7); #Monocytes 1.2 thou/uL (0.11-0.59); #Neutrophils 5.4 thou/uL (1.40-6.50); %Basophils 0.3 % (0.0-1.0); %Eosinophils 3.4 % (0.0-10.0); %Lymphocytes 26.7 % (21.0-51.0); %Monocytes 12.2 % (0.0-10.0); %Neutrophils 57.1 % (42.0-75.0); Hemoglobin 9.9 g/dL (14.0-18.0); Mean Corpuscular HGB CONC 29.8 g/dL (32.0-36.0); Mean Corpuscular Hemoglobin 29.5 pg (27.0-31.0); Mean Corpuscular Volume 98.8 fl (78.0-98.0); Mean Platelet Volume 8.8 fL (7.4-10.4); Platelet Count 220 10x3/uL (130-400); Red Blood Cell (RBC) Count 3.36 mill/uL (4.70-6.10); White Blood Cell (WBC) Count 9.5 10x3/uL (4.8-10.8)
[2023-04-30 05:11] LABS: INR-International Normal Ratio 1.1; PTT 33.6 sec (22.9-36.1); Prothrombin Time 14.5 sec (12.0-14.7)
[2023-04-30 05:22] LABS: ALT (SGPT) 17 U/L (8-55); AST (SGOT) 17 U/L (5-34); Albumin 3.2 g/dL (3.4-4.8); Alkaline Phosphatase 113 U/L (40-110); Anion Gap 12 mmol/L (10-20); BUN (Urea Nitrogen) 14 mg/dL (8.4-25.7); Bilirubin, Total 0.3 mg/dL (0.2-1.2); Calc. Creatinine Clearance 0 mL/min (70-130); Calcium 8.7 mg/dL (7.8-10.44); Carbon Dioxide 25 mmol/L (23-31); Chloride 108 mmol/L (98-107); Estimated GFR 53; Globulin 3.2 g/dL (2.4-3.5); Glucose 103 mg/dL (83-110); Potassium 4.6 mmol/L (3.5-5.1); Protein, Total 6.4 g/dL (5.8-8.1); Sodium 140 mmol/L (136-145)
[2023-04-30 06:58] VITALS: BMI 28.3
[2023-04-30] MEDS ORDERED: Ondansetron PF 4 MG/2 ML Vial IVP PRN (07:41)
[2023-04-30] MEDS ORDERED: Ipratropium/Albuterol 3 ML NEB NEB PRN (07:41)
[2023-04-30] MEDS ORDERED: hydrALAZINE 20 MG/ML VIAL SLOW IVP PRN (07:41)
[2023-04-30] MEDS ORDERED: Morphine 4 MG/ML VIAL SLOW IVP PRN (07:41)
[2023-04-30] MEDS ORDERED: Morphine 2 MG/ML VIAL SLOW IVP PRN (07:41)
[2023-04-30] MEDS ORDERED: Acetaminophen 325 MG TAB PO SCH (07:45)
[2023-04-30] MEDS: Acetaminophen 500 MG TAB PO SCH ×3 (08:37→23:57)
[2023-04-30] MEDS: Morphine 2 MG/ML VIAL SLOW IVP PRN ×2 (09:29→19:55)
[2023-04-30] MEDS: Sodium Chloride 0.9% 1,000 ML IV SCH ×2 (09:32→17:40)
[2023-04-30] MEDS: Tamsulosin HCl 0.4 MG CAP PO SCH (09:33)
[2023-04-30] MEDS: Famotidine/PF 20 mg/2ml Vial SLOW IVP SCH ×2 (09:33→19:54)
[2023-04-30] MEDS ORDERED: CEFAZOLIN 2 GM in Sodium Chloride 0.9% 100 ML IVPB SCH (09:45)
[2023-04-30] MEDS: traMADol HCl 50 MG TAB PO PRN (11:34)
[2023-04-30] MEDS: traMADol HCl 50 MG TAB PO SCH ×3 (11:34→23:57)
[2023-04-30] MEDS: lamoTRIgine 100 MG TAB PO SCH (19:54)
[2023-04-30] MEDS: Melatonin 3 MG TAB PO SCH (19:54)
[2023-04-30] MEDS: OLANZapine 2.5 MG TAB PO SCH (20:28)
[2023-04-30] MEDS: Citalopram 10 MG TAB PO SCH (20:29)
[2023-05-01] MEDS: traMADol HCl 50 MG TAB PO SCH ×4 (05:58→23:03)
[2023-05-01] MEDS: Acetaminophen 500 MG TAB PO SCH ×4 (05:58→23:04)
[2023-05-01 07:00] LABS: #Eosinphils 0.3 thou/uL (0.0-0.7); #Monocytes 0.8 thou/uL (0.11-0.59); #Neutrophils 3.6 thou/uL (1.40-6.50); %Basophils 0.1 % (0.0-1.0); %Eosinophils 4.9 % (0.0-10.0); %Lymphocytes 30.5 % (21.0-51.0); %Monocytes 11.7 % (0.0-10.0); %Neutrophils 52.5 % (42.0-75.0); Mean Corpuscular HGB CONC 28.7 g/dL (32.0-36.0); Mean Corpuscular Hemoglobin 29.1 pg (27.0-31.0); Mean Corpuscular Volume 101.5 fl (78.0-98.0); Mean Platelet Volume 9.1 fL (7.4-10.4); Platelet Count 193 10x3/uL (130-400); RBC Distribution Width 16.4 % (11.5-14.5); Red Blood Cell (RBC) Count 3.44 mill/uL (4.70-6.10); White Blood Cell (WBC) Count 6.9 10x3/uL (4.8-10.8)
[2023-05-01 07:16] LABS: Anion Gap 13 mmol/L (10-20); BUN (Urea Nitrogen) 12 mg/dL (8.4-25.7); Calc. Creatinine Clearance 73 mL/min (70-130); Calcium 8.4 mg/dL (7.8-10.44); Carbon Dioxide 21 mmol/L (23-31); Chloride 110 mmol/L (98-107); Estimated GFR 77; Glucose 94 mg/dL (83-110); Potassium 4.4 mmol/L (3.5-5.1); Sodium 140 mmol/L (136-145)
[2023-05-01 08:13] LABS: Burr Cells SLIGHT = 2-5 cells HPF (0-1); CellaVision Operator ID LAB.GE; Ovalocytes SLIGHT = 2-5 cells HPF (0-1); Platelet Adequacy Comment Platelets Normal; Polychromasia SLIGHT = 2-3 cells HPF (0-2)
[2023-05-01] MEDS: Famotidine/PF 20 mg/2ml Vial SLOW IVP SCH (08:22)
[2023-05-01] MEDS: Citalopram 20 MG TAB PO SCH (08:23)
[2023-05-01] MEDS: Tamsulosin HCl 0.4 MG CAP PO SCH (08:23)
[2023-05-01] MEDS ORDERED: Norepinephrine 4 MG/4 ML VIAL ONE (13:45)
[2023-05-01] MEDS ORDERED: fentaNYL PF 100 MCG/2 ML SYRINGE ONE (13:45)
[2023-05-01] MEDS ORDERED: Sodium Chloride 0.9% 100 ML ONE (13:51)
[2023-05-01] MEDS ORDERED: CEFAZOLIN 2 GM VIAL ONE (13:51)
[2023-05-01] MEDS ORDERED: Rocuronium Bromide 10 MG/ML (10ML VIAL) ONE (14:00)
[2023-05-01] MEDS ORDERED: PROPOFOL 200 MG/20 ML VIAL ONE (14:00)
[2023-05-01] MEDS ORDERED: SUGAMMADEX SODIUM 200 MG/2 ML VIAL ONE (15:11)
[2023-05-01] MEDS ORDERED: EPINEPHrine 1 MG/10 ML Abboject SYRINGE ONE (15:17)
[2023-05-01] MEDS ORDERED: Ondansetron HCl/PF 4 MG/2 ML Vial IVP PRN (15:50)
[2023-05-01] MEDS ORDERED: Promethazine HCl 25 MG/ML VIAL IM PRN (15:50)
[2023-05-01 17:06] LABS: Bilirubin Negative (Negative); Blood, Urine 1+ (Negative); CAUTI Indications for Culture Alt mental st,lethar; Clarity Turbid (Clear); Glucose, Urine (Dipstick) Normal (Negative); Ketone, Urine Negative (Negative); Leukocyte 500 Leu/uL (Negative); Nitrite Negative (Negative); Protein, Urine (Dipstick) 200 mg/dL (Neg-Trace); Specific Gravity, Urine 1.036 (1.002-1.036); Squamous Epithelial 0-3 HPF (0-3); Urobilinogen Normal mg/dL (Less than 2); pH, Urine 5.5 (5.0-9.0)
[2023-05-01 17:27] LABS: Bacteria/HPF 1+ HPF (None Seen)
[2023-05-01 17:30] LABS: Urine Culture Reflex Yes Yes
[2023-05-01] MEDS: traMADol HCl 50 MG TAB PO PRN (18:43)
[2023-05-01] MEDS: Morphine 2 MG/ML VIAL SLOW IVP PRN (20:24)
[2023-05-01] MEDS: Melatonin 3 MG TAB PO SCH (20:25)
[2023-05-01] MEDS: lamoTRIgine 100 MG TAB PO SCH (20:25)
[2023-05-01] MEDS: Citalopram 10 MG TAB PO SCH (20:26)
[2023-05-01] MEDS: OLANZapine 2.5 MG TAB PO SCH (20:26)
[2023-05-01] MEDS: Famotidine 20 MG TAB PO SCH (20:26)
[2023-05-01] MEDS: CEFAZOLIN 2 GM in Sodium Chloride 0.9% 100 ML IVPB SCH (23:04)
[2023-05-02] MEDS: Morphine 2 MG/ML VIAL SLOW IVP PRN (00:47)
[2023-05-02] MEDS ORDERED: Sodium Chloride 0.9% 500 ML IV SCH (05:30)
[2023-05-02 05:34] LABS: Hemoglobin 8.4 g/dL (14.0-18.0); Mean Corpuscular HGB CONC 30.3 g/dL (32.0-36.0); Mean Corpuscular Hemoglobin 29.1 pg (27.0-31.0); Mean Platelet Volume 9.6 fL (7.4-10.4); Platelet Count 223 10x3/uL (130-400); RBC Distribution Width 16.4 % (11.5-14.5); Red Blood Cell (RBC) Count 2.89 mill/uL (4.70-6.10); White Blood Cell (WBC) Count 9.4 10x3/uL (4.8-10.8)
[2023-05-02 05:36] LABS: Delete Auto Diff?? YES; Manual Diff?? YES; Mean Corpuscular Volume 95.8 fl (78.0-98.0)
[2023-05-02 05:55] LABS: Anion Gap 15 mmol/L (10-20); BUN (Urea Nitrogen) 18 mg/dL (8.4-25.7); Calc. Creatinine Clearance 52 mL/min (70-130); Carbon Dioxide 22 mmol/L (23-31); Chloride 104 mmol/L (98-107); Estimated GFR 51; Glucose 116 mg/dL (83-110); Magnesium 1.5 mg/dL (1.6-2.6); Phosphorus 4.6 mg/dL (2.3-4.7); Potassium 4.7 mmol/L (3.5-5.1); Sodium 136 mmol/L (136-145)
[2023-05-02] MEDS: traMADol HCl 50 MG TAB PO SCH ×3 (07:22→17:42)
[2023-05-02] MEDS: Acetaminophen 500 MG TAB PO SCH ×3 (07:22→17:42)
[2023-05-02] MEDS: CEFAZOLIN 2 GM in Sodium Chloride 0.9% 100 ML IVPB SCH ×2 (07:27→14:15)
[2023-05-02] MEDS ORDERED: Hydrocortisone Sod Succ/PF 100 mg/2 ml Vial IVP SCH (08:00)
[2023-05-02] MEDS ORDERED: Magnesium Sulfate In Water 4 GM in Premix Bag 1 BAG IVPB SCH (08:15)
[2023-05-02 08:30] LABS: Band 38 % (5-11); Eosinophils 2 % (0-10); Hypochromia SLIGHT = 6-15 cells (100X) (0-5/hpf); Lymphocytes 20 % (21-51); Metamyelocyte 1 % (0-0); Monocytes 11 % (0-10); Neutrophil 25 % (42-75); Polychromasia SLIGHT = 2-3 cells (100X) (0-2/hpf); Reactive Lymphocytes 2 % (0-10)
[2023-05-02 08:37] LABS: Large Platelets SLIGHT (None Seen)
[2023-05-02] MEDS: Citalopram 20 MG TAB PO SCH (09:02)
[2023-05-02] MEDS: Tamsulosin HCl 0.4 MG CAP PO SCH (09:02)
[2023-05-02] MEDS: Famotidine 20 MG TAB PO SCH ×2 (09:02→21:45)
[2023-05-02] MEDS ORDERED: Sodium Chloride 0.9% 1,000 ML IV SCH (13:45)
[2023-05-02] MEDS ORDERED: cefTRIAXone\\ROCEPHIN 1 GM in Sodium Chloride 0.9% 100 ML IVPB SCH (21:00)
[2023-05-02] MEDS: lamoTRIgine 100 MG TAB PO SCH (21:45)
[2023-05-02] MEDS: Melatonin 3 MG TAB PO SCH (21:45)
[2023-05-02] MEDS: OLANZapine 2.5 MG TAB PO SCH (21:46)
[2023-05-02] MEDS: Citalopram 10 MG TAB PO SCH (21:46)
[2023-05-02 22:25] LABS: Hemoglobin 7.3 g/dL (14.0-18.0); Mean Corpuscular HGB CONC 30.2 g/dL (32.0-36.0); Mean Corpuscular Hemoglobin 29.3 pg (27.0-31.0); Mean Corpuscular Volume 97.2 fl (78.0-98.0); Red Blood Cell (RBC) Count 2.49 mill/uL (4.70-6.10); White Blood Cell (WBC) Count 7.8 10x3/uL (4.8-10.8)
[2023-05-02 22:26] LABS: #Eosinphils 0.1 thou/uL (0.0-0.7); #Monocytes 1.5 thou/uL (0.11-0.59); #Neutrophils 4.3 thou/uL (1.40-6.50); %Eosinophils 0.9 % (0.0-10.0); %Lymphocytes 24.9 % (21.0-51.0); %Monocytes 18.9 % (0.0-10.0); %Neutrophils 54.9 % (42.0-75.0); Mean Platelet Volume 9.2 fL (7.4-10.4); Platelet Count 178 10x3/uL (130-400); RBC Distribution Width 16.4 % (11.5-14.5)
[2023-05-03] MEDS: traMADol HCl 50 MG TAB PO SCH ×5 (00:54→23:10)
[2023-05-03] MEDS: Acetaminophen 500 MG TAB PO SCH ×5 (00:55→23:10)
[2023-05-03 05:57] LABS: #Eosinphils 0.2 thou/uL (0.0-0.7); #Monocytes 1.1 thou/uL (0.11-0.59); #Neutrophils 4.5 thou/uL (1.40-6.50); %Basophils 0.1 % (0.0-1.0); %Eosinophils 2.3 % (0.0-10.0); %Lymphocytes 21.7 % (21.0-51.0); %Monocytes 14.9 % (0.0-10.0); %Neutrophils 60.6 % (42.0-75.0); Hemoglobin 7.1 g/dL (14.0-18.0); Mean Corpuscular HGB CONC 30.2 g/dL (32.0-36.0); Mean Corpuscular Hemoglobin 29.5 pg (27.0-31.0); Mean Corpuscular Volume 97.5 fl (78.0-98.0); Mean Platelet Volume 9.3 fL (7.4-10.4); Platelet Count 173 10x3/uL (130-400); RBC Distribution Width 16.4 % (11.5-14.5); Red Blood Cell (RBC) Count 2.41 mill/uL (4.70-6.10); White Blood Cell (WBC) Count 7.5 10x3/uL (4.8-10.8)
[2023-05-03 06:22] LABS: Anion Gap 12 mmol/L (10-20); BUN (Urea Nitrogen) 18 mg/dL (8.4-25.7); Calc. Creatinine Clearance 73 mL/min (70-130); Carbon Dioxide 22 mmol/L (23-31); Chloride 108 mmol/L (98-107); Potassium 4.2 mmol/L (3.5-5.1); Sodium 138 mmol/L (136-145)
[2023-05-03 06:23] LABS: Calcium 7.8 mg/dL (7.8-10.44); Estimated GFR 77; Glucose 94 mg/dL (83-110); Magnesium 2.3 mg/dL (1.6-2.6); Phosphorus 2.3 mg/dL (2.3-4.7)
[2023-05-03] MEDS: Tamsulosin HCl 0.4 MG CAP PO SCH (07:53)
[2023-05-03] MEDS: Ferrous Sulfate 325 MG TAB PO SCH ×2 (07:53→17:02)
[2023-05-03] MEDS: Citalopram 20 MG TAB PO SCH (07:54)
[2023-05-03] MEDS: Famotidine 20 MG TAB PO SCH ×2 (07:54→20:45)
[2023-05-03] MEDS: Ascorbic Acid 500 mg Chewable Tablet PO SCH (07:54)
[2023-05-03] MEDS: lamoTRIgine 100 MG TAB PO SCH (20:44)
[2023-05-03] MEDS: Melatonin 3 MG TAB PO SCH (20:45)
[2023-05-03] MEDS: Citalopram 10 MG TAB PO SCH (20:45)
[2023-05-03] MEDS: OLANZapine 2.5 MG TAB PO SCH (20:45)
[2023-05-03] MEDS ORDERED: Temazepam 15 MG CAP PO PRN ×2 (20:54→21:15)
[2023-05-03] MEDS ORDERED: ALPRAZolam 0.25 MG TAB PO PRN (21:17)
[2023-05-03] MEDS: ALPRAZolam 0.25 MG TAB PO PRN (21:32)
[2023-05-04] MEDS: traMADol HCl 50 MG TAB PO SCH ×5 (05:43→23:36)
[2023-05-04] MEDS: Acetaminophen 500 MG TAB PO SCH ×4 (05:43→23:33)
[2023-05-04] MEDS: Tamsulosin HCl 0.4 MG CAP PO SCH (08:04)
[2023-05-04] MEDS: Citalopram 20 MG TAB PO SCH (08:04)
[2023-05-04] MEDS: Famotidine 20 MG TAB PO SCH (08:04)
[2023-05-04] MEDS: Ascorbic Acid 500 mg Chewable Tablet PO SCH (08:05)
[2023-05-04] MEDS: Ferrous Sulfate 325 MG TAB PO SCH ×2 (08:05→18:05)
[2023-05-04 08:50] LABS: #Eosinphils 0.3 thou/uL (0.0-0.7); #Monocytes 0.8 thou/uL (0.11-0.59); #Neutrophils 5.1 thou/uL (1.40-6.50); %Basophils 0.1 % (0.0-1.0); %Eosinophils 3.9 % (0.0-10.0); %Lymphocytes 23.6 % (21.0-51.0); %Monocytes 9.5 % (0.0-10.0); %Neutrophils 62.4 % (42.0-75.0); Hemoglobin 9.1 g/dL (14.0-18.0); Mean Corpuscular HGB CONC 30.4 g/dL (32.0-36.0); Mean Corpuscular Hemoglobin 29.4 pg (27.0-31.0); Mean Corpuscular Volume 96.8 fl (78.0-98.0); Mean Platelet Volume 8.8 fL (7.4-10.4); Platelet Count 219 10x3/uL (130-400); Red Blood Cell (RBC) Count 3.09 mill/uL (4.70-6.10); White Blood Cell (WBC) Count 8.1 10x3/uL (4.8-10.8)
[2023-05-04] MEDS ORDERED: Losartan 25 MG TAB PO SCH (21:00)
[2023-05-04] MEDS: Citalopram 10 MG TAB PO SCH (21:42)
[2023-05-04] MEDS: Apixaban 5 MG TAB PO SCH (21:42)
[2023-05-04] MEDS: ALPRAZolam 0.25 MG TAB PO PRN (21:43)
[2023-05-04] MEDS: lamoTRIgine 100 MG TAB PO SCH (21:43)
[2023-05-04] MEDS: OLANZapine 2.5 MG TAB PO SCH (21:43)
[2023-05-04] MEDS: Melatonin 3 MG TAB PO SCH (21:43)
[2023-05-05] MEDS: traMADol HCl 50 MG TAB PO SCH ×2 (06:15→11:57)
[2023-05-05] MEDS: Acetaminophen 500 MG TAB PO SCH ×2 (06:15→11:56)
[2023-05-05] MEDS ORDERED: Aspirin 81 mg Enteric Coated Tablet PO SCH (09:00)
[2023-05-05] MEDS: Ferrous Sulfate 325 MG TAB PO SCH (09:05)
[2023-05-05] MEDS: Ascorbic Acid 500 mg Chewable Tablet PO SCH (09:05)
[2023-05-05] MEDS: Tamsulosin HCl 0.4 MG CAP PO SCH (09:05)
[2023-05-05] MEDS: Apixaban 5 MG TAB PO SCH (09:05)
[2023-05-05] MEDS: Citalopram 20 MG TAB PO SCH (09:06)
[2023-05-05 12:08] VITALS: BP 151/87; TEMP 97.5
== END 2023-05-05 14:05 | DRG 522 ==
LOC: ERS 03:49 → SURG A 05:56 → OBSVTOIN 07:41
PROVIDERS: ADMIT Specialist; ATTEND Specialist
PROC: 0SRS0JZ Replacement of Left Hip Joint, Femoral Surface with Synthetic Substitute, Open Approach (ICD-10-PCS; principal; 2023-05-01)
PROC: 30233N1 Transfusion of Nonautologous Red Blood Cells into Peripheral Vein, Percutaneous Approach (ICD-10-PCS; 2023-05-03)
DX: S72.035A Nondisplaced midcervical fracture of left femur, initial encounter for closed fracture (principal); N17.9 Acute kidney failure, unspecified; D62 Acute posthemorrhagic anemia; E83.42 Hypomagnesemia; I10 Essential (primary) hypertension; Z86.73 Personal history of transient ischemic attack (TIA), and cerebral infarction without residual deficits; E78.5 Hyperlipidemia, unspecified; I48.91 Unspecified atrial fibrillation; W18.30XA Fall on same level, unspecified, initial encounter; N40.0 Benign prostatic hyperplasia without lower urinary tract symptoms; Z90.89 Acquired absence of other organs; Z79.82 Long term (current) use of aspirin; Z79.899 Other long term (current) drug therapy; Z79.01 Long term (current) use of anticoagulants; Z85.46 Personal history of malignant neoplasm of prostate; Z86.711 Personal history of pulmonary embolism
CPT/HCPCS: 36415; 36430; 70450; 71045; 72170; 72192; 80048; 80053; 81001; 83735; 84100; 85025; 85610; 85730; 86850; 86900; 86901; 87086; 93005; 96374; C1776; G0378; J0171; J0696; J1720; J2272; J2704; J3010; J3475; J3490; J7050; P9016; S0028

== ENCOUNTER → 2023-05-30 | Day surgery (SDC) | payer MEDICARE ==
[~2023-05-30] MED LIST changes: -Iopamidol-370 76% 500 ML MDV (1 ML CHARGE) ONE; +LevoFLOXacin 250 mg/D5W 250 MG in Premix Bag 1 BAG IVPB SCH; +Sodium Bicarbonate 2.5 MEQ/5 ML VIAL ONE; +fentaNYL 50 mcg/mL 1 mL Vial ONE
== END ==
LOC: CT 08:24
PROVIDERS: ATTEND Urology
PROC: 0T9B30Z Drainage of Bladder with Drainage Device, Percutaneous Approach (ICD-10-PCS; principal; 2023-05-30)
DX: N40.1 Benign prostatic hyperplasia with lower urinary tract symptoms (principal); R33.8 Other retention of urine; Z90.89 Acquired absence of other organs; I10 Essential (primary) hypertension; E78.5 Hyperlipidemia, unspecified; I48.91 Unspecified atrial fibrillation; Z79.01 Long term (current) use of anticoagulants; Z79.899 Other long term (current) drug therapy
CPT/HCPCS: 51102; 77002; C2627; J1956; J3010

== ENCOUNTER 2024-09-10 08:28 | Inpatient (IN) | payer MEDICARE ==
[2024-09-10] MEDS ORDERED: Iopamidol-370 76% 500 ML MDV (1 ML CHARGE) ONE (09:16)
[2024-09-10 09:59] LABS: #Basophils Less than 0.03 10x3/uL (0.0-0.2); %Basophils 0.3 % (0.0-1.0); %Eosinophils 1.9 % (0.0-10.0); %Lymphocytes 9.2 % (21.0-51.0); %Monocytes 15.3 % (0.0-10.0); %Neutrophils 73.1 % (42.0-75.0); Hematocrit 39.4 % (42.0-52.0); Hemoglobin 12.6 g/dL (14.0-18.0); Mean Corpuscular Hemoglobin 31.5 pg (27.0-31.0); Mean Corpuscular Volume 98.5 fL (78.0-98.0); Mean Platelet Volume 9.2 fL (7.4-10.4); Platelet Count 176 10x3/uL (130-400); RBC Distribution Width 14.9 % (11.5-14.5)
[2024-09-10 10:26] LABS: ALT (SGPT) 16 U/L (8-55); AST (SGOT) 15 U/L (5-34); Albumin 2.6 g/dL (3.4-4.8); Alkaline Phosphatase 71 U/L (40-110); Anion Gap 16 mmol/L (10-20); BUN (Urea Nitrogen) 26 mg/dL (8.4-25.7); Bilirubin, Total 0.6 mg/dL (0.2-1.2); Calc. Creatinine Clearance 0 mL/min (70-130); Calcium 8.5 mg/dL (7.8-10.44); Carbon Dioxide 24 mmol/L (23-31); Chloride 102 mmol/L (98-107); Estimated GFR 59; Globulin 4.4 g/dL (2.4-3.5); Glucose 146 mg/dL (83-110); Potassium 4.4 mmol/L (3.5-5.1); Sodium 138 mmol/L (136-145)
[2024-09-10 10:38] LABS: INR-International Normal Ratio 1.2; Prothrombin Time 15.4 sec (12.0-14.7)
[2024-09-10] MEDS ORDERED: Ondansetron PF 4 MG/2 ML Vial ONE (11:46)
[2024-09-10] MEDS ORDERED: Pantoprazole 40 MG VIAL ONE (11:47)
[2024-09-10] MEDS ORDERED: TRIAZOLAM 0.25 MG PO SCH (21:00)
[2024-09-10] MEDS: Pantoprazole 40 MG VIAL IVP SCH (21:33)
[2024-09-10] MEDS: Mirtazapine 15 MG TAB PO SCH (21:33)
[2024-09-10] MEDS: Ondansetron PF 4 MG/2 ML Vial IVP PRN (21:35)
[2024-09-10 22:49] VITALS: BMI 27.7
[2024-09-11 04:43] LABS: Hematocrit 38.7 % (42.0-52.0); Hemoglobin 12.2 g/dL (14.0-18.0); Mean Corpuscular HGB CONC 31.5 g/dL (32.0-36.0); Mean Corpuscular Hemoglobin 31.4 pg (27.0-31.0); Mean Corpuscular Volume 99.5 fL (78.0-98.0); Mean Platelet Volume 9.6 fL (7.4-10.4); Platelet Count 157 10x3/uL (130-400); RBC Distribution Width 15.3 % (11.5-14.5); Red Blood Cell (RBC) Count 3.89 mill/uL (4.70-6.10)
[2024-09-11 05:21] LABS: Band 58 % (5-11); Lymphocytes 2 % (21-51); Monocytes 12 % (0-10); Neutrophil 28 % (42-75); Platelet Adequacy Comment Platelets Normal; RBC Morphology Within Normal Limits; Smudge Cells 4.9 %
[2024-09-11 05:53] LABS: Anion Gap 19 mmol/L (10-20); BUN (Urea Nitrogen) 30 mg/dL (8.4-25.7); Calc. Creatinine Clearance 53 mL/min (70-130); Calcium 8.5 mg/dL (7.8-10.44); Carbon Dioxide 22 mmol/L (23-31); Chloride 104 mmol/L (98-107); Estimated GFR 55; Glucose 132 mg/dL (83-110); Potassium 4.4 mmol/L (3.5-5.1); Sodium 141 mmol/L (136-145)
[2024-09-11] MEDS: Acetaminophen 325 MG TAB PO PRN (06:13)
[2024-09-11] MEDS: Enoxaparin 40 MG (0.4 mL) SYRINGE SC SCH (08:11)
[2024-09-11] MEDS: Atorvastatin Calcium 40 MG TAB PO SCH (08:11)
[2024-09-11] MEDS ORDERED: GASTROGRAFIN 30 ML BOT ONE (09:52)
[2024-09-11] MEDS: Sodium Chloride 0.9% 1,000 ML IV SCH ×3 (10:26→18:32)
[2024-09-11 13:18] LABS: Hematocrit 39.8 % (42.0-52.0); Hemoglobin 12.9 g/dL (14.0-18.0); Mean Corpuscular HGB CONC 32.4 g/dL (32.0-36.0); Mean Corpuscular Hemoglobin 31.9 pg (27.0-31.0); Mean Corpuscular Volume 98.3 fL (78.0-98.0); Mean Platelet Volume 9.4 fL (7.4-10.4); Platelet Count 139 10x3/uL (130-400); RBC Distribution Width 15.4 % (11.5-14.5); Red Blood Cell (RBC) Count 4.05 mill/uL (4.70-6.10)
[2024-09-11] MEDS: Metoprolol Tartrate 5 MG (5 mL) VIAL IVP SCH ×2 (14:03→18:32)
[2024-09-11 15:10] LABS: Anion Gap 19 mmol/L (10-20); BUN (Urea Nitrogen) 35 mg/dL (8.4-25.7); Calc. Creatinine Clearance 53 mL/min (70-130); Calcium 8.3 mg/dL (7.8-10.44); Carbon Dioxide 18 mmol/L (23-31); Chloride 107 mmol/L (98-107); Estimated GFR 55; Glucose 130 mg/dL (83-110); Potassium 4.4 mmol/L (3.5-5.1); Sodium 140 mmol/L (136-145)
[2024-09-11] MEDS ORDERED: Metoprolol Tartrate 5 MG (5 mL) VIAL IVP PRN (17:55)
[2024-09-11 20:37] VITALS: BMI 27.7
[2024-09-11 23:02] LABS: Bilirubin Negative (Negative); Blood, Urine 3+ (Negative); CAUTI Indications for Culture Acute Hematuria; Clarity Turbid (Clear); Glucose, Urine (Dipstick) Normal (Negative); Ketone, Urine Negative (Negative); Leukocyte 250 Leu/uL (Negative); Nitrite 2+ (Negative); Protein, Urine (Dipstick) 70 mg/dL (Neg-Trace); Specific Gravity, Urine 1.032 (1.002-1.036); Squamous Epithelial None Seen HPF (0-3); Urobilinogen Normal mg/dL (Less than 2)
[2024-09-11 23:22] LABS: Bacteria/HPF 3+ HPF (None Seen); RBC/HPF Greater than 50 HPF (0-3)
[2024-09-11 23:24] LABS: Urine Culture Reflex Yes Yes
[2024-09-12 04:09] LABS: Hematocrit 36.8 % (42.0-52.0); Hemoglobin 11.7 g/dL (14.0-18.0); Mean Corpuscular HGB CONC 31.8 g/dL (32.0-36.0); Mean Corpuscular Hemoglobin 31.8 pg (27.0-31.0); Mean Platelet Volume 9.7 fL (7.4-10.4); Platelet Count 155 10x3/uL (130-400); RBC Distribution Width 15.3 % (11.5-14.5); Red Blood Cell (RBC) Count 3.68 mill/uL (4.70-6.10)
[2024-09-12 04:22] LABS: Anion Gap 17 mmol/L (10-20); BUN (Urea Nitrogen) 34 mg/dL (8.4-25.7); Calc. Creatinine Clearance 58 mL/min (70-130); Calcium 8.3 mg/dL (7.8-10.44); Carbon Dioxide 22 mmol/L (23-31); Chloride 110 mmol/L (98-107); Estimated GFR 61; Glucose 110 mg/dL (83-110); Potassium 3.8 mmol/L (3.5-5.1); Sodium 145 mmol/L (136-145)
[2024-09-12 04:49] LABS: Band 51 % (5-11); Eosinophils 1 % (0-10); Lymphocytes 15 % (21-51); Macrocytosis SLIGHT = 6-15 cells HPF (0-5); Monocytes 14 % (0-10); Neutrophil 15 % (42-75); Platelet Adequacy Comment Platelets Normal; Polychromasia SLIGHT = 2-3 cells HPF (0-2); Reactive Lymphocytes 5 % (0-10)
[2024-09-12] MEDS ORDERED: CEFEPIME IVPB PRN (14:35)
[2024-09-12] MEDS ORDERED: VANCOMYCIN IVPB PRN (14:35)
[2024-09-12] MEDS ORDERED: cefTRIAXone\\ROCEPHIN 2 GM in Sodium Chloride 0.9% 100 ML IVPB SCH (15:00)
[2024-09-12] MEDS: Sodium Chloride 0.9% 1,000 ML IV SCH (16:59)
[2024-09-12] MEDS: Cefepime 1 GM in Sodium Chloride 0.9% 100 ML IVPB SCH (17:00)
[2024-09-12] MEDS: Vancomycin 1 GM in Sodium Chloride 0.9% 250 ML 250 ML IVPB SCH (18:16)
[2024-09-12] MEDS: Vancomycin (BATCH) 2 GM in Premix 1 BAG IVPB SCH ×2 (19:28)
[2024-09-12] MEDS ORDERED: Linezolid 600 MG TAB PO SCH (21:00)
[2024-09-12] MEDS: Furosemide 20 MG (2 mL) VIAL SLOW IVP SCH (23:10)
[2024-09-13 04:33] LABS: #Basophils Less than 0.03 10x3/uL (0.0-0.2); %Basophils 0.2 % (0.0-1.0); %Eosinophils 2.4 % (0.0-10.0); %Lymphocytes 19.7 % (21.0-51.0); %Monocytes 18.5 % (0.0-10.0); %Neutrophils 58.8 % (42.0-75.0); Hemoglobin 11.7 g/dL (14.0-18.0); Mean Corpuscular HGB CONC 31.6 g/dL (32.0-36.0); Mean Corpuscular Hemoglobin 31.4 pg (27.0-31.0); Mean Corpuscular Volume 99.2 fL (78.0-98.0); Mean Platelet Volume 9.8 fL (7.4-10.4); Platelet Count 158 10x3/uL (130-400); RBC Distribution Width 15.5 % (11.5-14.5); Red Blood Cell (RBC) Count 3.73 mill/uL (4.70-6.10)
[2024-09-13 04:57] LABS: Anion Gap 14 mmol/L (10-20); BUN (Urea Nitrogen) 23 mg/dL (8.4-25.7); Calc. Creatinine Clearance 67 mL/min (70-130); Calcium 7.9 mg/dL (7.8-10.44); Carbon Dioxide 22 mmol/L (23-31); Chloride 113 mmol/L (98-107); Estimated GFR 72; Glucose 100 mg/dL (83-110); Potassium 3.2 mmol/L (3.5-5.1); Sodium 146 mmol/L (136-145)
[2024-09-13] MEDS: Potassium Chloride 20 MEQ in Premix 1 BAG IVPB SCH (07:19)
[2024-09-13 08:31] LABS: Magnesium 2.1 mg/dL (1.6-2.6)
[2024-09-13] MEDS ORDERED: Iopamidol-370 76% 500 ML MDV (1 ML CHARGE) ONE (10:53)
[2024-09-13] MEDS: Vancomycin (BATCH) 1.5 GM in Premix 1 BAG IVPB SCH (15:01)
[2024-09-13] MEDS ORDERED: VANCOMYCIN 1.25 GM/250 ML BAG 1.25 GM in Premix 1 BAG IVPB SCH ×2 (16:00→20:00)
[2024-09-13] MEDS ORDERED: Apixaban 5 MG TAB PO SCH (21:00)
[2024-09-13] MEDS: Trospium 20 MG TAB PO SCH (21:31)
[2024-09-14 04:28] LABS: #Basophils 0.04 10x3/uL (0.0-0.2); %Basophils 0.4 % (0.0-1.0); %Eosinophils 4.2 % (0.0-10.0); %Lymphocytes 23.5 % (21.0-51.0); %Monocytes 15.9 % (0.0-10.0); %Neutrophils 55.1 % (42.0-75.0); Hematocrit 33.7 % (42.0-52.0); Hemoglobin 10.8 g/dL (14.0-18.0); Mean Corpuscular Hemoglobin 31.7 pg (27.0-31.0); Mean Corpuscular Volume 98.8 fL (78.0-98.0); Mean Platelet Volume 9.6 fL (7.4-10.4); Platelet Count 158 10x3/uL (130-400); RBC Distribution Width 15.3 % (11.5-14.5); Red Blood Cell (RBC) Count 3.41 mill/uL (4.70-6.10)
[2024-09-14 04:43] LABS: Anion Gap 12 mmol/L (10-20); BUN (Urea Nitrogen) 14 mg/dL (8.4-25.7); Calc. Creatinine Clearance 77 mL/min (70-130); Calcium 7.4 mg/dL (7.8-10.44); Carbon Dioxide 18 mmol/L (23-31); Chloride 116 mmol/L (98-107); Estimated GFR 84; Glucose 115 mg/dL (83-110); Potassium 2.9 mmol/L (3.5-5.1); Sodium 143 mmol/L (136-145)
[2024-09-14] MEDS: Potassium Chloride 20 MEQ TAB PO SCH (05:42)
[2024-09-14] MEDS: Apixaban 2.5 MG TAB PO SCH (08:31)
[2024-09-14] MEDS: Metoclopramide 10 MG/10 ML UDCUP PO SCH (23:50)
[2024-09-15 04:48] LABS: Hematocrit 34.6 % (42.0-52.0); Mean Corpuscular HGB CONC 31.8 g/dL (32.0-36.0); Mean Corpuscular Hemoglobin 31.6 pg (27.0-31.0); Mean Corpuscular Volume 99.4 fL (78.0-98.0); Mean Platelet Volume 10.5 fL (7.4-10.4); Platelet Count 141 10x3/uL (130-400); RBC Distribution Width 15.4 % (11.5-14.5); Red Blood Cell (RBC) Count 3.48 mill/uL (4.70-6.10)
[2024-09-15 04:50] LABS: Anion Gap 11 mmol/L (10-20); BUN (Urea Nitrogen) 11 mg/dL (8.4-25.7); Calc. Creatinine Clearance 85 mL/min (70-130); Calcium 7.7 mg/dL (7.8-10.44); Carbon Dioxide 19 mmol/L (23-31); Chloride 115 mmol/L (98-107); Estimated GFR 86; Glucose 102 mg/dL (83-110); Potassium 3.3 mmol/L (3.5-5.1); Sodium 142 mmol/L (136-145)
[2024-09-15 05:24] LABS: Anisocytosis SLIGHT = 6-15 cells HPF (0-5); Band 6 % (5-11); Eosinophils 5 % (0-10); Lymphocytes 14 % (21-51); Monocytes 9 % (0-10); Neutrophil 65 % (42-75); Ovalocytes SLIGHT = 2-5 cells HPF (0-1); Platelet Adequacy Comment Platelets Normal; Polychromasia SLIGHT = 2-3 cells HPF (0-2)
[2024-09-15] MEDS: Potassium Bicarbonate/Cit Ac 20 MEQ TAB PO SCH (09:56)
[2024-09-16] MEDS: Potassium Chloride 20 MEQ TAB PO SCH (09:13)
[2024-09-16 12:08] VITALS: TEMP 97.5
[2024-09-16 16:33] VITALS: BP 120/60
== END 2024-09-16 14:06 | DRG 389 ==
LOC: ERS 08:28 → ERHOLD 13:53 → 2NO 18:54 → OBSVTOIN 09-11 11:51
PROVIDERS: ADMIT Internal Medicine; ATTEND Internal Medicine
DX: K56.600 Partial intestinal obstruction, unspecified as to cause (principal); E87.0 Hyperosmolality and hypernatremia; T83.510A Infection and inflammatory reaction due to cystostomy catheter, initial encounter; I47.10 Supraventricular tachycardia, unspecified; N39.0 Urinary tract infection, site not specified; E87.6 Hypokalemia; I10 Essential (primary) hypertension; F31.9 Bipolar disorder, unspecified; D64.9 Anemia, unspecified; Z90.89 Acquired absence of other organs; Z98.890 Other specified postprocedural states; Z86.711 Personal history of pulmonary embolism; Z79.899 Other long term (current) drug therapy; Z79.01 Long term (current) use of anticoagulants; I44.1 Atrioventricular block, second degree
CPT/HCPCS: 36415; 71045; 71275; 74018; 74177; 74250; 80048; 80053; 80202; 81001; 82274; 83735; 83880; 85025; 85610; 86850; 86900; 86901; 87077; 87086; 87186; 93005; 93010; 93306; 94760; 96361; 96374; 96376; G0378; J0692; J1940; J2405; J2470; J3370; J3480; J7030; Q9963; Q9967

== ENCOUNTER 2025-05-21 18:29 | Inpatient (IN) | payer MEDICARE ==
[~2025-05-21 18:29] MED LIST changes: +Iopamidol 370 76% 100 ML VIAL ONE; -LevoFLOXacin 250 mg/D5W 250 MG in Premix Bag 1 BAG IVPB SCH; -Sodium Bicarbonate 2.5 MEQ/5 ML VIAL ONE; -fentaNYL 50 mcg/mL 1 mL Vial ONE
[2025-05-21 20:04] LABS: #Basophils 0.05 10x3/uL (0.0-0.2); #Eosinophils Less than 0.03 10x3/uL (0.0-0.7); #Monocytes 1.71 10x3/uL (0.11-0.59); #Neutrophils 14.94 10x3/uL (1.40-6.50); %Basophils 0.3 % (0.0-1.0); %Eosinophils 0.1 % (0.0-10.0); %Lymphocytes 6.8 % (21.0-51.0); %Monocytes 9.5 % (0.0-10.0); %Neutrophils 82.7 % (42.0-75.0); Hematocrit 45.4 % (42.0-52.0); Hemoglobin 15.2 g/dL (14.0-18.0); Mean Corpuscular Hemoglobin 32.4 pg (27.0-31.0); Mean Corpuscular Volume 96.8 fL (78.0-98.0); Platelet Count 277 10x3/uL (130-400); Red Blood Cell (RBC) Count 4.69 mill/uL (4.70-6.10); White Blood Cell (WBC) Count 18.05 10x3/uL (4.8-10.8)
[2025-05-21 20:41] LABS: ALT (SGPT) 16 U/L (Less than 45); AST (SGOT) 13 U/L (11-34); Albumin 2.8 g/dL (3.1-4.5); Alkaline Phosphatase 90 U/L (40-110); Anion Gap 25 mmol/L (10-20); BUN (Urea Nitrogen) 26 mg/dL (8.4-25.7); Bilirubin, Total 1.0 mg/dL (0.3-1.2); Calc. Creatinine Clearance 0 mL/min (70-130); Calcium 8.9 mg/dL (7.8-10.44); Carbon Dioxide 16 mmol/L (23-31); Chloride 100 mmol/L (98-107); Globulin 4.6 g/dL (2.4-3.5); Glucose 158 mg/dL (83-110); Potassium 5.3 mmol/L (3.5-5.1); Sodium 136 mmol/L (136-145)
[2025-05-22] MEDS ORDERED: CERTOLIZUMAB PEGOL 400 MG SC SCH (00:30)
[2025-05-22 01:33] LABS: Actual Bicarbonate (HCO3v) 18.0 mEq/L (22-28); Base Excess -1.0 mEq/L (-2.0 to +3.0); Calcium, Ionized (venous) 0.99 mmol/L (1.16-1.32); Chloride (VBG) 101 mmol/L (98-106); Hematocrit-VBG 47 % (42.0-52.0); Hemoglobin (Hb) 15.9 g/dL (12.6-17.4); Potassium (VBG) 5.29 mmol/L (3.70-5.30); Sodium 134 mmol/L (133-146)
[2025-05-22] MEDS: Enoxaparin 100 MG (1 mL) SYRINGE SC SCH ×2 (02:20→21:54)
[2025-05-22] MEDS: cefTRIAXone\\ROCEPHIN 1 GM in Sodium Chloride 0.9% 100 ML IVPB SCH (02:20)
[2025-05-22 02:56] VITALS: BMI 26.9
[2025-05-22 05:12] LABS: #Basophils 0.03 10x3/uL (0.0-0.2); #Eosinophils 0.03 10x3/uL (0.0-0.7); #Monocytes 1.27 10x3/uL (0.11-0.59); #Neutrophils 7.25 10x3/uL (1.40-6.50); %Basophils 0.3 % (0.0-1.0); %Eosinophils 0.3 % (0.0-10.0); %Lymphocytes 10.8 % (21.0-51.0); %Monocytes 13.2 % (0.0-10.0); %Neutrophils 75.1 % (42.0-75.0); Hematocrit 45.2 % (42.0-52.0); Hemoglobin 14.4 g/dL (14.0-18.0); Mean Corpuscular Hemoglobin 32.0 pg (27.0-31.0); Mean Corpuscular Volume 100.4 fL (78.0-98.0); Platelet Count 253 10x3/uL (130-400); Red Blood Cell (RBC) Count 4.50 mill/uL (4.70-6.10); White Blood Cell (WBC) Count 9.65 10x3/uL (4.8-10.8)
[2025-05-22 05:25] LABS: ALT (SGPT) 12 U/L (Less than 45); AST (SGOT) 15 U/L (11-34); Albumin 2.6 g/dL (3.1-4.5); Alkaline Phosphatase 76 U/L (40-110); Anion Gap 25 mmol/L (10-20); BUN (Urea Nitrogen) 32 mg/dL (8.4-25.7); Bilirubin, Total 0.6 mg/dL (0.3-1.2); Calc. Creatinine Clearance 35 mL/min (70-130); Calcium 8.8 mg/dL (7.8-10.44); Carbon Dioxide 17 mmol/L (23-31); Chloride 101 mmol/L (98-107); Globulin 4.7 g/dL (2.4-3.5); Glucose 144 mg/dL (83-110); Potassium 5.0 mmol/L (3.5-5.1); Sodium 138 mmol/L (136-145)
[2025-05-22 06:20] LABS: Bacteria/HPF None Seen HPF (None Seen); CAUTI Indications for Culture Alt mental st,lethar; Glucose, Urine (Dipstick) Normal (Negative); Leukocyte 500 Leu/uL (Negative); Protein, Urine (Dipstick) 20 mg/dL (Neg-Trace); RBC/HPF 21-50 HPF (0-3); WBC/HPF 21-50 HPF (0-3)
[2025-05-22 06:24] LABS: Specific Gravity, Urine 1.042 (1.002-1.036)
[2025-05-22 06:26] LABS: Urine Culture Reflex Yes Yes
[2025-05-22] MEDS ORDERED: Vancomycin Dose by Levels Sliding Scale (Wt 71-99) FS SCH (07:00)
[2025-05-22] MEDS: Pantoprazole 40 MG VIAL IVP SCH (08:11)
[2025-05-22] MEDS: VANCOMYCIN 1.75 GM/350 ML Premix BAG IVPB SCH (08:11)
[2025-05-22] MEDS ORDERED: Famotidine/PF 20 mg/2ml Vial SLOW IVP SCH (09:00)
[2025-05-22] MEDS ORDERED: Vancomycin 1 GM in Premix 1 BAG IVPB SCH (09:00)
[2025-05-22] MEDS ORDERED: Famotidine 20 MG TAB PO SCH (09:00)
[2025-05-22] MEDS ORDERED: MD-Gastroview 120 ML BOT ONE (09:16)
[2025-05-22 09:34] VITALS: BMI 26.9
[2025-05-22] MEDS: Ondansetron PF 4 MG/2 ML Vial IVP PRN (13:58)
[2025-05-22] MEDS: Phenol 177 ML BOT PO PRN (15:13)
[2025-05-22] MEDS: Ketorolac Tromethamine 30 MG (1 mL) VIAL IVP SCH (21:55)
[2025-05-23 07:16] LABS: Vancomycin, Trough 15.7 ug/mL
[2025-05-24] MEDS: Mineral Oil ENEMA PR SCH (08:05)
[2025-05-24 09:31] LABS: #Basophils Less than 0.03 10x3/uL (0.0-0.2); #Eosinophils 0.23 10x3/uL (0.0-0.7); #Monocytes 1.19 10x3/uL (0.11-0.59); #Neutrophils 6.16 10x3/uL (1.40-6.50); %Basophils 0.2 % (0.0-1.0); %Eosinophils 2.5 % (0.0-10.0); %Lymphocytes 16.0 % (21.0-51.0); %Monocytes 13.1 % (0.0-10.0); %Neutrophils 67.8 % (42.0-75.0); Hematocrit 38.5 % (42.0-52.0); Hemoglobin 12.1 g/dL (14.0-18.0); Mean Corpuscular Hemoglobin 33.0 pg (27.0-31.0); Mean Corpuscular Volume 104.9 fL (78.0-98.0); Platelet Count 202 10x3/uL (130-400); Red Blood Cell (RBC) Count 3.67 mill/uL (4.70-6.10); White Blood Cell (WBC) Count 9.10 10x3/uL (4.8-10.8)
[2025-05-24 09:48] LABS: ALT (SGPT) 12 U/L (Less than 45); AST (SGOT) 17 U/L (11-34); Albumin 2.2 g/dL (3.1-4.5); Alkaline Phosphatase 59 U/L (40-110); Anion Gap 17 mmol/L (10-20); BUN (Urea Nitrogen) 25 mg/dL (8.4-25.7); Bilirubin, Total 0.3 mg/dL (0.3-1.2); Calc. Creatinine Clearance 58 mL/min (70-130); Calcium 7.9 mg/dL (7.8-10.44); Carbon Dioxide 18 mmol/L (23-31); Chloride 114 mmol/L (98-107); Globulin 3.6 g/dL (2.4-3.5); Glucose 75 mg/dL (83-110); Magnesium 2.1 mg/dL (1.6-2.6); Potassium 3.4 mmol/L (3.5-5.1); Sodium 146 mmol/L (136-145)
[2025-05-24 09:50] LABS: Vancomycin, Trough 11.2 ug/mL
[2025-05-24] MEDS ORDERED: PROPOFOL 40 ML ONE (10:37)
[2025-05-24] MEDS ORDERED: Etomidate 40 MG (20 mL) VIAL ONE (10:43)
[2025-05-24] MEDS ORDERED: Calcium Chloride 1 GM/10 ML Abboject SYRINGE ONE (10:53)
[2025-05-24] MEDS ORDERED: PHENYLEPHRINE-NS 100 MCG/ML 10 ML SYRINGE ONE (11:08)
[2025-05-24] MEDS: Enoxaparin 100 MG (1 mL) SYRINGE SC SCH (19:47)
[2025-05-25 06:09] LABS: #Basophils Less than 0.03 10x3/uL (0.0-0.2); #Eosinophils Less than 0.03 10x3/uL (0.0-0.7); #Monocytes 0.18 10x3/uL (0.11-0.59); #Neutrophils 6.22 10x3/uL (1.40-6.50); %Basophils 0.1 % (0.0-1.0); %Eosinophils 0.0 % (0.0-10.0); %Lymphocytes 8.1 % (21.0-51.0); %Monocytes 2.6 % (0.0-10.0); %Neutrophils 88.8 % (42.0-75.0); Hematocrit 35.1 % (42.0-52.0); Hemoglobin 11.1 g/dL (14.0-18.0); Mean Corpuscular Hemoglobin 32.5 pg (27.0-31.0); Mean Corpuscular Volume 102.6 fL (78.0-98.0); Platelet Count 188 10x3/uL (130-400); Red Blood Cell (RBC) Count 3.42 mill/uL (4.70-6.10); White Blood Cell (WBC) Count 7.01 10x3/uL (4.8-10.8)
[2025-05-25 06:39] LABS: ALT (SGPT) 21 U/L (Less than 45); AST (SGOT) 31 U/L (11-34); Albumin 2.0 g/dL (3.1-4.5); Alkaline Phosphatase 58 U/L (40-110); Anion Gap 15 mmol/L (10-20); BUN (Urea Nitrogen) 22 mg/dL (8.4-25.7); Bilirubin, Total 0.2 mg/dL (0.3-1.2); Calc. Creatinine Clearance 79 mL/min (70-130); Calcium 7.8 mg/dL (7.8-10.44); Carbon Dioxide 16 mmol/L (23-31); Chloride 116 mmol/L (98-107); Globulin 3.5 g/dL (2.4-3.5); Glucose 114 mg/dL (83-110); Magnesium 1.9 mg/dL (1.6-2.6); Potassium 4.1 mmol/L (3.5-5.1); Sodium 143 mmol/L (136-145)
[2025-05-26 06:10] LABS: Anion Gap 12 mmol/L (10-20); BUN (Urea Nitrogen) 19 mg/dL (8.4-25.7); Calc. Creatinine Clearance 81 mL/min (70-130); Calcium 7.5 mg/dL (7.8-10.44); Carbon Dioxide 16 mmol/L (23-31); Chloride 115 mmol/L (98-107); Glucose 229 mg/dL (83-110); Magnesium 1.8 mg/dL (1.6-2.6); Potassium 3.9 mmol/L (3.5-5.1); Sodium 139 mmol/L (136-145)
[2025-05-26 07:13] LABS: Hematocrit 35.6 % (42.0-52.0); Hemoglobin 11.7 g/dL (14.0-18.0); Mean Corpuscular Hemoglobin 32.6 pg (27.0-31.0); Mean Corpuscular Volume 99.2 fL (78.0-98.0); Platelet Count 191 10x3/uL (130-400); Red Blood Cell (RBC) Count 3.59 mill/uL (4.70-6.10); White Blood Cell (WBC) Count 11.41 10x3/uL (4.8-10.8)
[2025-05-26 07:46] LABS: #Basophils 0.03 10x3/uL (0.0-0.2); #Eosinophils Less than 0.03 10x3/uL (0.0-0.7); #Monocytes 0.82 10x3/uL (0.11-0.59); #Neutrophils 9.51 10x3/uL (1.40-6.50); %Basophils 0.3 % (0.0-1.0); %Eosinophils 0.0 % (0.0-10.0); %Lymphocytes 9.6 % (21.0-51.0); %Monocytes 7.1 % (0.0-10.0); %Neutrophils 81.8 % (42.0-75.0)
[2025-05-26] MEDS: Apixaban 2.5 MG TAB PO SCH (11:00)
[2025-05-27] MEDS ORDERED: Acetaminophen 325 MG TAB PO PRN (03:15)
[2025-05-27] MEDS: Acetaminophen 500 MG TAB PO SCH (03:34)
[2025-05-27 05:40] LABS: #Basophils Less than 0.03 10x3/uL (0.0-0.2); #Eosinophils 0.03 10x3/uL (0.0-0.7); #Monocytes 1.52 10x3/uL (0.11-0.59); #Neutrophils 8.67 10x3/uL (1.40-6.50); %Basophils 0.1 % (0.0-1.0); %Eosinophils 0.2 % (0.0-10.0); %Lymphocytes 16.4 % (21.0-51.0); %Monocytes 12.3 % (0.0-10.0); %Neutrophils 70.1 % (42.0-75.0); Hematocrit 32.0 % (42.0-52.0); Hemoglobin 10.7 g/dL (14.0-18.0); Mean Corpuscular Hemoglobin 32.9 pg (27.0-31.0); Mean Corpuscular Volume 98.5 fL (78.0-98.0); Platelet Count 205 10x3/uL (130-400); Red Blood Cell (RBC) Count 3.25 mill/uL (4.70-6.10); White Blood Cell (WBC) Count 12.37 10x3/uL (4.8-10.8)
[2025-05-27 05:58] LABS: Anion Gap 8 mmol/L (10-20); BUN (Urea Nitrogen) 15 mg/dL (8.4-25.7); Calc. Creatinine Clearance 90 mL/min (70-130); Calcium 7.5 mg/dL (7.8-10.44); Carbon Dioxide 21 mmol/L (23-31); Chloride 113 mmol/L (98-107); Glucose 106 mg/dL (83-110); Magnesium 1.7 mg/dL (1.6-2.6); Potassium 3.7 mmol/L (3.5-5.1); Sodium 138 mmol/L (136-145)
[2025-05-27 12:07] VITALS: BP 123/78; TEMP 97.6
[2025-05-27] MEDS: predniSONE 20 MG TAB PO SCH (12:08)
[2025-05-27] MEDS: Transdermal Patch Removal TOP SCH (16:39)
== END 2025-05-27 17:25 | DRG 388 ==
LOC: ERS 18:29 → T4-A 23:49 → OBSVTOIN 05-22 11:18
PROVIDERS: ADMIT Internal Medicine; ATTEND Hospitalist
PROC: 3E03329 Introduction of Other Anti-infective into Peripheral Vein, Percutaneous Approach (ICD-10-PCS; 2025-05-22)
PROC: 0D9670Z Drainage of Stomach with Drainage Device, Via Natural or Artificial Opening (ICD-10-PCS; 2025-05-22)
PROC: 3E033XZ Introduction of Vasopressor into Peripheral Vein, Percutaneous Approach (ICD-10-PCS; 2025-05-22)
PROC: 0DBN8ZX Excision of Sigmoid Colon, Via Natural or Artificial Opening Endoscopic, Diagnostic (ICD-10-PCS; principal; 2025-05-24)
DX: K56.609 Unspecified intestinal obstruction, unspecified as to partial versus complete obstruction (principal); A41.9 Sepsis, unspecified organism; K50.90 Crohn's disease, unspecified, without complications; T83.510A Infection and inflammatory reaction due to cystostomy catheter, initial encounter; K62.6 Ulcer of anus and rectum; N13.8 Other obstructive and reflux uropathy; E87.3 Alkalosis; E87.20 Acidosis, unspecified; N39.0 Urinary tract infection, site not specified; I10 Essential (primary) hypertension; E78.5 Hyperlipidemia, unspecified; N40.0 Benign prostatic hyperplasia without lower urinary tract symptoms; F31.9 Bipolar disorder, unspecified; Z96.642 Presence of left artificial hip joint; K62.4 Stenosis of anus and rectum; M25.552 Pain in left hip; M79.652 Pain in left thigh; N40.1 Benign prostatic hyperplasia with lower urinary tract symptoms; I44.1 Atrioventricular block, second degree; M79.622 Pain in left upper arm; F41.9 Anxiety disorder, unspecified; D64.9 Anemia, unspecified; Y84.6 Urinary catheterization as the cause of abnormal reaction of the patient, or of later complication, without mention of misadventure at the time of the procedure; W01.0XXA Fall on same level from slipping, tripping and stumbling without subsequent striking against object, initial encounter; Z98.890 Other specified postprocedural states; Z86.73 Personal history of transient ischemic attack (TIA), and cerebral infarction without residual deficits; Z79.82 Long term (current) use of aspirin; Z79.899 Other long term (current) drug therapy; Z86.711 Personal history of pulmonary embolism; Z90.49 Acquired absence of other specified parts of digestive tract; Y92.009 Unspecified place in unspecified non-institutional (private) residence as the place of occurrence of the external cause
CPT/HCPCS: 36415; 71045; 74018; 74177; 74230; 74280; 80048; 80053; 80202; 81001; 82607; 82805; 83605; 83735; 83880; 84145; 84484; 85025; 87040; 87077; 87086; 87186; 88305; 93005; 96372; 96374; 96375; 96376; G0378; J0696; J1650; J1885; J2060; J2270; J2405; J2470; J2704; J2919; J3010; J3373; J3375; J7030; J7512; Q9963; Q9967

== ENCOUNTER 2025-06-11 19:49 | Inpatient (IN) | payer MEDICARE ==
[~2025-06-11 19:49] MED LIST changes: -Iopamidol 370 76% 100 ML VIAL ONE; +Iopamidol-370 76% 500 ML MDV (1 ML CHARGE) ONE
[2025-06-11] MEDS ORDERED: Ondansetron PF 4 MG/2 ML Vial ONE (20:31)
[2025-06-11 20:50] LABS: #Basophils 0.03 10x3/uL (0.0-0.2); #Eosinophils 0.04 10x3/uL (0.0-0.7); #Monocytes 1.06 10x3/uL (0.11-0.59); #Neutrophils 6.12 10x3/uL (1.40-6.50); %Basophils 0.4 % (0.0-1.0); %Eosinophils 0.5 % (0.0-10.0); %Lymphocytes 13.0 % (21.0-51.0); %Monocytes 12.6 % (0.0-10.0); %Neutrophils 73.0 % (42.0-75.0); Hematocrit 45.2 % (42.0-52.0); Hemoglobin 14.5 g/dL (14.0-18.0); Mean Corpuscular Hemoglobin 32.7 pg (27.0-31.0); Mean Corpuscular Volume 101.8 fL (78.0-98.0); Platelet Count 280 10x3/uL (130-400); Red Blood Cell (RBC) Count 4.44 mill/uL (4.70-6.10); White Blood Cell (WBC) Count 8.38 10x3/uL (4.8-10.8)
[2025-06-11 21:11] LABS: ALT (SGPT) 16 U/L (Less than 45); AST (SGOT) 15 U/L (11-34); Albumin 2.8 g/dL (3.1-4.5); Alkaline Phosphatase 116 U/L (40-110); Anion Gap 22 mmol/L (10-20); BUN (Urea Nitrogen) 23 mg/dL (8.4-25.7); Bilirubin, Total 1.1 mg/dL (0.3-1.2); Calc. Creatinine Clearance 0 mL/min (70-130); Calcium 9.3 mg/dL (7.8-10.44); Carbon Dioxide 20 mmol/L (23-31); Chloride 100 mmol/L (98-107); Globulin 4.6 g/dL (2.4-3.5); Glucose 145 mg/dL (83-110); Lipase 12 U/L (8-78); Potassium 4.8 mmol/L (3.5-5.1); Sodium 137 mmol/L (136-145)
[2025-06-11] MEDS ORDERED: dilTIAZem 25 MG/5 ML VIAL ONE (21:37)
[2025-06-11 22:51] LABS: Bacteria/HPF 4+ HPF (None Seen); CAUTI Indications for Culture Dysuria,urgency,freq; Glucose, Urine (Dipstick) Normal (Negative); Leukocyte 500 Leu/uL (Negative); Protein, Urine (Dipstick) 200 mg/dL (Neg-Trace); RBC/HPF 0-3 HPF (0-3); Specific Gravity, Urine 1.026 (1.002-1.036); WBC/HPF 21-50 HPF (0-3)
[2025-06-11 22:56] LABS: Urine Culture Reflex Yes Yes
[2025-06-11] MEDS ORDERED: Calcium Carbonate 500 MG ChewTAB PO PRN (23:18)
[2025-06-12 00:58] VITALS: BMI 25.4
[2025-06-12 03:47] LABS: Hematocrit 38.6 % (42.0-52.0); Hemoglobin 12.3 g/dL (14.0-18.0); Mean Corpuscular Hemoglobin 32.9 pg (27.0-31.0); Mean Corpuscular Volume 103.2 fL (78.0-98.0); Platelet Count 195 10x3/uL (130-400); Red Blood Cell (RBC) Count 3.74 mill/uL (4.70-6.10); White Blood Cell (WBC) Count 7.41 10x3/uL (4.8-10.8)
[2025-06-12 03:58] LABS: ALT (SGPT) 13 U/L (Less than 45); AST (SGOT) 11 U/L (11-34); Albumin 2.0 g/dL (3.1-4.5); Alkaline Phosphatase 84 U/L (40-110); Anion Gap 14 mmol/L (10-20); BUN (Urea Nitrogen) 24 mg/dL (8.4-25.7); Bilirubin, Total 0.9 mg/dL (0.3-1.2); Calc. Creatinine Clearance 46 mL/min (70-130); Calcium 8.0 mg/dL (7.8-10.44); Carbon Dioxide 20 mmol/L (23-31); Chloride 107 mmol/L (98-107); Globulin 3.6 g/dL (2.4-3.5); Glucose 145 mg/dL (83-110); Potassium 4.2 mmol/L (3.5-5.1); Sodium 137 mmol/L (136-145)
[2025-06-12 04:12] LABS: Burr Cells SLIGHT = 2-5 cells HPF (0-1); Macrocytosis SLIGHT = 6-15 cells HPF (0-5); Platelet Adequacy Comment Platelets Normal; Polychromasia SLIGHT = 2-3 cells HPF (0-2); Smudge Cells 0.9 %
[2025-06-12] MEDS: Apixaban 2.5 MG TAB PO SCH (10:32)
[2025-06-12] MEDS: Bupropion 150 MG SR.TAB PO SCH (10:32)
[2025-06-12] MEDS: Oxybutynin 5 MG TAB PO SCH (10:32)
[2025-06-12] MEDS: Cyanocobalamin (Vitamin B-12) 1,000 MCG TAB PO SCH (10:32)
[2025-06-12] MEDS: Folic Acid 1 MG TAB PO SCH (10:32)
[2025-06-12] MEDS: Aspirin 81 mg Enteric Coated Tablet PO SCH (10:32)
[2025-06-12] MEDS: Pantoprazole 40 MG GRANULES PACKET PO SCH (10:34)
[2025-06-12] MEDS: Ondansetron PF 4 MG/2 ML Vial IVP PRN (12:40)
[2025-06-12] MEDS: Simethicone Chewable 80 MG TAB PO PRN (16:00)
[2025-06-12] MEDS: Melatonin 3 MG TAB PO SCH (20:25)
[2025-06-13 04:29] LABS: Hematocrit 38.6 % (42.0-52.0); Hemoglobin 12.4 g/dL (14.0-18.0); Mean Corpuscular Hemoglobin 32.9 pg (27.0-31.0); Mean Corpuscular Volume 102.4 fL (78.0-98.0); Platelet Count 214 10x3/uL (130-400); Red Blood Cell (RBC) Count 3.77 mill/uL (4.70-6.10); White Blood Cell (WBC) Count 8.18 10x3/uL (4.8-10.8)
[2025-06-13 04:53] LABS: Anion Gap 17 mmol/L (10-20); BUN (Urea Nitrogen) 24 mg/dL (8.4-25.7); Calc. Creatinine Clearance 44 mL/min (70-130); Calcium 8.3 mg/dL (7.8-10.44); Carbon Dioxide 22 mmol/L (23-31); Chloride 104 mmol/L (98-107); Glucose 144 mg/dL (83-110); Potassium 4.0 mmol/L (3.5-5.1); Sodium 139 mmol/L (136-145)
[2025-06-13 05:05] LABS: Anisocytosis SLIGHT = 6-15 cells HPF (0-5); Macrocytosis SLIGHT = 6-15 cells HPF (0-5); Platelet Adequacy Comment Platelets Normal; Polychromasia SLIGHT = 2-3 cells HPF (0-2); Smudge Cells 3.8 %
[2025-06-13] MEDS: predniSONE 20 MG TAB PO SCH (15:11)
[2025-06-14] MEDS: predniSONE 20 MG TAB PO SCH (09:53)
[2025-06-14] MEDS: Pantoprazole 40 MG DR.TAB PO SCH (11:48)
[2025-06-15 10:23] LABS: #Basophils 0.03 10x3/uL (0.0-0.2); #Eosinophils 0.24 10x3/uL (0.0-0.7); #Monocytes 1.01 10x3/uL (0.11-0.59); #Neutrophils 5.65 10x3/uL (1.40-6.50); %Basophils 0.4 % (0.0-1.0); %Eosinophils 2.9 % (0.0-10.0); %Lymphocytes 16.0 % (21.0-51.0); %Monocytes 12.1 % (0.0-10.0); %Neutrophils 67.6 % (42.0-75.0); Hematocrit 39.7 % (42.0-52.0); Hemoglobin 12.3 g/dL (14.0-18.0); Mean Corpuscular Hemoglobin 32.5 pg (27.0-31.0); Mean Corpuscular Volume 105.0 fL (78.0-98.0); Platelet Count 190 10x3/uL (130-400); Red Blood Cell (RBC) Count 3.78 mill/uL (4.70-6.10); White Blood Cell (WBC) Count 8.35 10x3/uL (4.8-10.8)
[2025-06-15 10:33] LABS: Anion Gap 14 mmol/L (10-20); BUN (Urea Nitrogen) 17 mg/dL (8.4-25.7); Calc. Creatinine Clearance 57 mL/min (70-130); Calcium 8.1 mg/dL (7.8-10.44); Carbon Dioxide 22 mmol/L (23-31); Chloride 107 mmol/L (98-107); Glucose 85 mg/dL (83-110); Potassium 3.4 mmol/L (3.5-5.1)
[2025-06-15] MEDS: Pantoprazole 40 MG DR.TAB PO SCH (10:35)
[2025-06-15 10:41] LABS: Sodium 140 mmol/L (136-145)
[2025-06-15] MEDS: Cipro 250 MG TAB PO SCH (20:19)
[2025-06-16 04:07] LABS: #Basophils Less than 0.03 10x3/uL (0.0-0.2); #Eosinophils Less than 0.03 10x3/uL (0.0-0.7); #Monocytes 0.73 10x3/uL (0.11-0.59); #Neutrophils 4.92 10x3/uL (1.40-6.50); %Basophils 0.2 % (0.0-1.0); %Eosinophils 0.2 % (0.0-10.0); %Lymphocytes 11.9 % (21.0-51.0); %Monocytes 11.2 % (0.0-10.0); %Neutrophils 75.1 % (42.0-75.0); Hematocrit 34.4 % (42.0-52.0); Hemoglobin 10.7 g/dL (14.0-18.0); Mean Corpuscular Hemoglobin 32.8 pg (27.0-31.0); Mean Corpuscular Volume 105.5 fL (78.0-98.0); Platelet Count 191 10x3/uL (130-400); Red Blood Cell (RBC) Count 3.26 mill/uL (4.70-6.10); White Blood Cell (WBC) Count 6.54 10x3/uL (4.8-10.8)
[2025-06-16 04:24] LABS: Anion Gap 13 mmol/L (10-20); BUN (Urea Nitrogen) 13 mg/dL (8.4-25.7); Calc. Creatinine Clearance 83 mL/min (70-130); Calcium 7.7 mg/dL (7.8-10.44); Carbon Dioxide 21 mmol/L (23-31); Chloride 108 mmol/L (98-107); Glucose 123 mg/dL (83-110); Potassium 3.8 mmol/L (3.5-5.1); Sodium 138 mmol/L (136-145)
[2025-06-16] MEDS: Acetaminophen 325 MG TAB PO PRN (09:21)
[2025-06-17 03:57] LABS: #Basophils Less than 0.03 10x3/uL (0.0-0.2); #Eosinophils Less than 0.03 10x3/uL (0.0-0.7); #Monocytes 0.54 10x3/uL (0.11-0.59); #Neutrophils 5.19 10x3/uL (1.40-6.50); %Basophils 0.3 % (0.0-1.0); %Eosinophils 0.0 % (0.0-10.0); %Lymphocytes 9.7 % (21.0-51.0); %Monocytes 8.2 % (0.0-10.0); %Neutrophils 78.5 % (42.0-75.0); Hematocrit 36.6 % (42.0-52.0); Hemoglobin 11.5 g/dL (14.0-18.0); Mean Corpuscular Hemoglobin 33.1 pg (27.0-31.0); Mean Corpuscular Volume 105.5 fL (78.0-98.0); Platelet Count 214 10x3/uL (130-400); Red Blood Cell (RBC) Count 3.47 mill/uL (4.70-6.10); White Blood Cell (WBC) Count 6.61 10x3/uL (4.8-10.8)
[2025-06-17 04:16] LABS: CRP, High Sensitivity at Bryan 2.04 mg/dL (< or = 0.5)
[2025-06-17 04:17] LABS: ALT (SGPT) 14 U/L (Less than 45); AST (SGOT) 12 U/L (11-34); Albumin 2.0 g/dL (3.1-4.5); Alkaline Phosphatase 69 U/L (40-110); Anion Gap 11 mmol/L (10-20); BUN (Urea Nitrogen) 15 mg/dL (8.4-25.7); Bilirubin, Total 0.2 mg/dL (0.3-1.2); Calc. Creatinine Clearance 83 mL/min (70-130); Calcium 7.9 mg/dL (7.8-10.44); Carbon Dioxide 22 mmol/L (23-31); Chloride 110 mmol/L (98-107); Globulin 3.2 g/dL (2.4-3.5); Glucose 173 mg/dL (83-110); Potassium 4.0 mmol/L (3.5-5.1); Sodium 139 mmol/L (136-145)
[2025-06-17 15:32] VITALS: BMI 25.4
[2025-06-18 04:26] LABS: #Basophils 0.04 10x3/uL (0.0-0.2); #Eosinophils Less than 0.03 10x3/uL (0.0-0.7); #Monocytes 1.56 10x3/uL (0.11-0.59); #Neutrophils 8.21 10x3/uL (1.40-6.50); %Basophils 0.3 % (0.0-1.0); %Eosinophils 0.2 % (0.0-10.0); %Lymphocytes 12.4 % (21.0-51.0); %Monocytes 13.5 % (0.0-10.0); %Neutrophils 70.9 % (42.0-75.0); Hematocrit 39.5 % (42.0-52.0); Hemoglobin 12.4 g/dL (14.0-18.0); Mean Corpuscular Hemoglobin 32.8 pg (27.0-31.0); Mean Corpuscular Volume 104.5 fL (78.0-98.0); Platelet Count 231 10x3/uL (130-400); Red Blood Cell (RBC) Count 3.78 mill/uL (4.70-6.10); White Blood Cell (WBC) Count 11.57 10x3/uL (4.8-10.8)
[2025-06-18 04:41] LABS: Anion Gap 21 mmol/L (10-20); BUN (Urea Nitrogen) 14 mg/dL (8.4-25.7); Calc. Creatinine Clearance 80 mL/min (70-130); Calcium 8.2 mg/dL (7.8-10.44); Carbon Dioxide 22 mmol/L (23-31); Chloride 102 mmol/L (98-107); Glucose 115 mg/dL (83-110); Magnesium 1.9 mg/dL (1.6-2.6); Potassium 3.7 mmol/L (3.5-5.1); Sodium 141 mmol/L (136-145)
[2025-06-18] MEDS: Magnesium 2 GM/50 ML(in water) 2 GM in Premix 1 BAG IVPB SCH (09:35)
[2025-06-18] MEDS ORDERED: metroNIDAZOLE 500 MG (100 mL) BAG ONE (11:28)
[2025-06-18] MEDS ORDERED: Lidocaine 2% 6 ML (Jelly) SYR ONE (11:31)
[2025-06-18] MEDS ORDERED: Bupivacaine 0.25% HCL 30 ML VIAL ONE (11:31)
[2025-06-18] MEDS ORDERED: Famotidine/PF 20 mg/2ml Vial ONE (11:58)
[2025-06-18] MEDS ORDERED: PHENYLEPHRINE-NS 100 MCG/ML 10 ML SYRINGE ONE (12:05)
[2025-06-18] MEDS ORDERED: PROPOFOL 20 ML ONE (12:05)
[2025-06-18] MEDS ORDERED: Rocuronium Bromide 10 MG/ML (10ML VIAL) ONE (12:25)
[2025-06-18] MEDS ORDERED: Ondansetron PF 4 MG/2 ML Vial ONE (12:56)
[2025-06-18] MEDS ORDERED: SUGAMMADEX SODIUM 200 MG/2 ML VIAL ONE (12:59)
[2025-06-19 03:56] LABS: #Basophils 0.07 10x3/uL (0.0-0.2); #Eosinophils Less than 0.03 10x3/uL (0.0-0.7); #Monocytes 1.80 10x3/uL (0.11-0.59); #Neutrophils 12.96 10x3/uL (1.40-6.50); %Basophils 0.4 % (0.0-1.0); %Eosinophils 0.1 % (0.0-10.0); %Lymphocytes 9.8 % (21.0-51.0); %Monocytes 10.7 % (0.0-10.0); %Neutrophils 77.1 % (42.0-75.0); Hematocrit 45.6 % (42.0-52.0); Hemoglobin 14.4 g/dL (14.0-18.0); Mean Corpuscular Hemoglobin 32.9 pg (27.0-31.0); Mean Corpuscular Volume 104.1 fL (78.0-98.0); Platelet Count 250 10x3/uL (130-400); Red Blood Cell (RBC) Count 4.38 mill/uL (4.70-6.10); White Blood Cell (WBC) Count 16.82 10x3/uL (4.8-10.8)
[2025-06-19 04:10] LABS: Anion Gap 14 mmol/L (10-20); BUN (Urea Nitrogen) 16 mg/dL (8.4-25.7); Calc. Creatinine Clearance 72 mL/min (70-130); Calcium 8.1 mg/dL (7.8-10.44); Carbon Dioxide 21 mmol/L (23-31); Chloride 107 mmol/L (98-107); Glucose 157 mg/dL (83-110); Magnesium 2.0 mg/dL (1.6-2.6); Potassium 4.2 mmol/L (3.5-5.1); Sodium 138 mmol/L (136-145)
[2025-06-19] MEDS: predniSONE 20 MG TAB PO SCH (09:51)
[2025-06-19] MEDS: PHOS-NAK 1 PKT PACK PO SCH (09:51)
[2025-06-19] MEDS: Magnesium 2 GM/50 ML(in water) 2 GM in Premix 1 BAG IVPB SCH (09:59)
[2025-06-20 04:01] LABS: #Basophils 0.03 10x3/uL (0.0-0.2); #Eosinophils 0.09 10x3/uL (0.0-0.7); #Monocytes 1.56 10x3/uL (0.11-0.59); #Neutrophils 13.78 10x3/uL (1.40-6.50); %Basophils 0.2 % (0.0-1.0); %Eosinophils 0.5 % (0.0-10.0); %Lymphocytes 8.9 % (21.0-51.0); %Monocytes 9.0 % (0.0-10.0); %Neutrophils 79.8 % (42.0-75.0); Hematocrit 39.1 % (42.0-52.0); Hemoglobin 12.4 g/dL (14.0-18.0); Mean Corpuscular Hemoglobin 32.7 pg (27.0-31.0); Mean Corpuscular Volume 103.2 fL (78.0-98.0); Platelet Count 250 10x3/uL (130-400); Red Blood Cell (RBC) Count 3.79 mill/uL (4.70-6.10); White Blood Cell (WBC) Count 17.27 10x3/uL (4.8-10.8)
[2025-06-20 04:22] LABS: Anion Gap 11 mmol/L (10-20); BUN (Urea Nitrogen) 16 mg/dL (8.4-25.7); Calc. Creatinine Clearance 91 mL/min (70-130); Calcium 8.0 mg/dL (7.8-10.44); Carbon Dioxide 27 mmol/L (23-31); Chloride 104 mmol/L (98-107); Glucose 96 mg/dL (83-110); Potassium 4.0 mmol/L (3.5-5.1); Sodium 138 mmol/L (136-145)
[2025-06-20 10:44] VITALS: TEMP 97.9
[2025-06-20 16:19] VITALS: BP 114/76
== END 2025-06-20 19:39 | DRG 981 ==
LOC: ERS 19:49 → PCU 23:33
PROVIDERS: ADMIT Student in an Organized Health Care Education/Training Program; ATTEND Family Medicine
PROC: 3E03329 Introduction of Other Anti-infective into Peripheral Vein, Percutaneous Approach (ICD-10-PCS; 2025-06-11)
PROC: 0T9B70Z Drainage of Bladder with Drainage Device, Via Natural or Artificial Opening (ICD-10-PCS; 2025-06-12)
PROC: 0DH67UZ Insertion of Feeding Device into Stomach, Via Natural or Artificial Opening (ICD-10-PCS; 2025-06-12)
PROC: 3E0G76Z Introduction of Nutritional Substance into Upper GI, Via Natural or Artificial Opening (ICD-10-PCS; 2025-06-12)
PROC: 0DBQ0ZZ Excision of Anus, Open Approach (ICD-10-PCS; principal; 2025-06-19)
PROC: 0HX9XZZ Transfer Perineum Skin, External Approach (ICD-10-PCS; 2025-06-19)
DX: T83.518A Infection and inflammatory reaction due to other urinary catheter, initial encounter (principal); A41.9 Sepsis, unspecified organism; R65.20 Severe sepsis without septic shock; K50.90 Crohn's disease, unspecified, without complications; K56.609 Unspecified intestinal obstruction, unspecified as to partial versus complete obstruction; N17.9 Acute kidney failure, unspecified; Z66 Do not resuscitate; N40.0 Benign prostatic hyperplasia without lower urinary tract symptoms; I48.91 Unspecified atrial fibrillation; I10 Essential (primary) hypertension; E78.5 Hyperlipidemia, unspecified; K62.4 Stenosis of anus and rectum; Z96.642 Presence of left artificial hip joint; F31.9 Bipolar disorder, unspecified; R13.12 Dysphagia, oropharyngeal phase; M25.552 Pain in left hip; Z98.890 Other specified postprocedural states; Z90.49 Acquired absence of other specified parts of digestive tract; Z90.89 Acquired absence of other organs
CPT/HCPCS: 36415; 71045; 74177; 80048; 80053; 81001; 83605; 83690; 83735; 84100; 84145; 84484; 85025; 86141; 87040; 87077; 87086; 87149; 87186; 93005; 96361; 96374; 96375; 96376; 97139; J0169; J0665; J2270; J2405; J2543; J2704; J2919; J3010; J3475; J7030; J7120; J7512; Q9967